=== PATIENT | male | born 1975 | race Hispanic/Latino ===

== ENCOUNTER 2018-03-03 08:17 | Inpatient (IN) | payer MEDICAID, OTHER ==
[2018-03-03 08:30] VITALS: O2SAT 96; BMI 22.2
--- NOTE | 2018-03-03 15:31 | PCM.PSYCH ---
Initial Psychiatric Evaluation - Initial Psychiatric Evaluation Type of Admission: Voluntary Legal Status: Capacity (patient has capacity to sign consent for treatment) Chief Complaint (in patient's own words): "I was in so many hospitals, I had been on all possible psychotropic medications, I was in [facility] for one year, I was on ECT treatment, nothing works, I am anxious 30/12, I was discharged from [facility], I told them I am not ready, but they let me go, I will tell you as well if I am not ready...., I cannot live like that, I am not using drugs, but I know where to buy them, I will snort the heroin and that will be it..." Patient's Reaction to Hospitalization: patient was transferred from [facility] [place] for evaluation and stabilization of depressive symptoms, uncontrolled anxiety, medication management observation and stabilization. Patient was willing to get treatment. History of Present Illness and Precipitating Events: shortly patient is 42-year-old male, self reported history of depression and anxiety, multiple admissions to the psychiatric inpatient unit, including [facility] for one year, recently discharged from [facility] 2 weeks ago, patient currently under [facility] [place], patient has intensive case management as well as nursing staff treatment team, pt denied history of suicidal attempts, one day ago patient tried to cut his forearm (no sutures, very superficial), patient came to [facility] looking for help for his depressive symptoms, anxiety "30/12" inability to function, patient was accepted by nurse practitioner overnight, patient requires further evaluation and stabilization, medication adjustment. patient was seen and examined, discussed with staff, educations confirmed by patient pharmacy, patient was seen at the treatment team meeting room, patient presented to be with acceptable personal hygiene, good ADLs, patient is talkative, process was over inclusive, patient is very dramatic, was using professional terms such as "I was not feeling well, even my ADLs were poor". Patient reported that he was not ready for discharge from [facility] "but they steal discharge me", patient said he did not like the set of the medication what he was discharged on including Seroquel, Klonopin, Trileptal, Tegretol and Prozac, patient reported that he was feeling "overly medicated". As per report from the other hospital patient stopped taking educations including Trileptal Tegretol and Prozac's 3 days ago. Patient reported that "I cannot live this way no more, I want to overdose on Heroin even though that I'm not using any drugs" (this statement is ?, because pt knows a drug dealers and pt was able to describe "ten bags will kill me". pt denied intent or plan to kill self. pt reported that "I feel anxious all the time, I feel panicky 30/12", pt reported that he wakes up with "very uncomfortable feeling", pt asked "why I cannot be a normal person, cook for myself, enjoy my life". pt was c/o that he feels depressed/hopeless and helpless/ pt reported that his anxiety is making him feel this way. off note pt does not present to be anxious or depressed, pt articulates well, expressing himself very well, moreover it is not physically possible to have anxiety 30/12 and sleeps 20 hrs a day. pt c/o weight loss about 20LB for the past two weeks, "I am not exercising". pt denied drinking, smoking about 1/2 pack a day, offered nicotine patch pt is needy/dramatic/has strong borderline personality traits. medical h/o: diabetis, dyslipidemia Social: pt has sister and mother, pt reported h/o working and having his "own place", but was not able to work since 2014. past psych h/o: multiple psych admissions [facility] in August 2017 was d/c, pt said that he staid there for so long because of suicidal ideation with the plan to jump off the bridge. more than 15 of total hospitalizations to the psyc unit. family h/o: mother and sister anxiety and depression, father's father kill self with the gun at age of 50. ppatient mother and patient's sister relatively stable on Zoloft. denied using drugs, but doubtful, pt said he smokes Marijuana last time was three days ago "to help with anxiety". Vital Signs Temp Pulse Resp BP Pulse Ox 03/03/18 08:29 97.9 F 62 17 127/85 96 labs cannabis positive, benzos positive the rest WNL EKG was shown changes will repeat EKG will consider medical consult Current Medications: Active Medications Generic Name Dose Route Start Last Admin Trade Name Freq PRN Reason Stop Dose Admin Alprazolam 1 mg 03/03/18 16:00 Xanax PO BID [facility] Protocol Alprazolam 1 mg 03/03/18 22:00 Xanax PO HS [facility] Protocol Atorvastatin Calcium 20 mg 03/03/18 17:00 Lipitor PO DIN [facility] Cholecalciferol 1,000 intlu 03/04/18 08:00 Vitamin D PO DAILY [facility] Glimepiride 4 mg 03/03/18 12:15 03/03/18 12:47 Amaryl PO 4 mg DAILY LOUISE Administration Metformin HCl 1,000 mg 03/03/18 16:30 Glucophage PO AC LOUISE Ondansetron HCl 4 mg 03/03/18 12:33 03/03/18 12:49 Zofran Odt PO 4 mg BID PRN Administration Nausea/Vomiting Propranolol HCl 20 mg 03/03/18 16:00 Inderal PO BID [facility] Quetiapine Fumarate 100 mg 03/03/18 22:00 Seroquel PO HS [facility] Protocol Sitagliptin Phosphate 100 mg 03/04/18 08:00 Januvia PO DAILY [facility] Past Psychiatric History - Past Psychiatric History Previous Treatment History: Inpatient Prior Professional Help: as per HPI Prior Psychiatric Treatment: as per HPI At [facility]: as per HPI Duration: as per HPI Nature of Treatment: as per HPI Explanation of prior treatment: as per HPI History of Abuse: as per HPI History of ETOH/Drug Use: as per HPI History of Family Illness: as per HPI Pertinent Medical Hx (Current Medical&Sleep Prob, Allergies): Allergies Allergy/AdvReac Type Severity Reaction Status Date / Time No Known Allergies Allergy Verified 03/03/18 08:28 No Known Home Med 03/03/18 Review of Systems - Review of Systems Systems not reviewed;Unavailable: Acuity of Condition - EENT Eyes: As Per HPI Ears: As Per HPI Nose/Mouth/Throat: As Per HPI - Cardiovascular Cardiovascular: As Per HPI - Respiratory Respiratory: As Per HPI - Gastrointestinal Gastrointestinal: As Per HPI - Genitourinary Genitourinary: As Per HPI - Reproductive: Male Reproductive:Male: As Per HPI - Musculoskeletal Musculoskeletal: As Par HPI - Integumentary Integumentary: As Per HPI - Neurological Neurological: As Per HPI - Psychiatric Psychiatric: As Per HPI - Endocrine Endocrine: As Per HPI - Hematologic/Lymphatic Hematologic: As Per HPI Mental Status Examination - Personal Presentation Personal Presentation: Looks stated age - Affect Affect: Constricted (but reactive) - Motor Activity Motor Activity: Calm - Reliability in Providing Information Reliability in Providing Information: Poor, due to altered mood, Other (strong borderline traits) - Speech Speech: Organized - Mood Mood: Depressed ("I am very deperessed, anxious") - Formal Thought Process Formal Thought Process: No Impairment, Other (but thougth process is overinclusive) - Obsessions/Compulsions Obsessions: None Compulsions: None - Cognitive Functions Orientation: Person, Place, Situation, Time Sensorium: Alert Estimate of Intelligence: Average Judgement: Intact, as evidence by: Insight regarding need for hospitalization - Risk Risk: Diminished functioning - Strength & Assets Inventory Strength & Assets Inventory: Cooperative (good physical health) - Limitations Limitations: Living alone DSM 5 DX - DSM 5 DSM 5 Diagnosis: mood disorder NOS r/o mdd r/o severe borderline personality disorder r/o venkata - Recommended/Plan of Treatment Treatment Recommendations and Plan of Treatment: milieu/structure and supportive therapy medication list was confirmed by resident, pharmacy phone number is [phone] Januvia 100 mg daily Propranolol 20 mg daily Atorvastatin 20 mg daily Glimepiride 4 mg daily patient was on carbamazepine 200 mg twice a day, will be on hold Metformin 500 mg daily Vitamin D Prozac 20 mg daily was filled in February 12 Clonazepam 1 mg twice daily Haldol 10 mg at bedtime last filled in January 21 Treatment plan was discussed in details medications for dyslipidemia as well as diabetes resumed Prozac will be discontinued Haldol will be discontinued Zoloft 50 mg will be started for depression and anxiety Seroquel 100 mg at the nighttime for mood stabilization. Clonazepam 1 mg twice daily will be substituted for Xanax 1 mg 3 times a day EKG will be repeated TSH, free T4 Medical consult will be considered SW consultation for discharge plan and social issues Family involvement Follow up on labs Will monitor closely Pt was educated about risk/benefits and alternatives of medications, coping strategies (safety plan, suicide prevention), relapse prevention, importance of follow up with psychiatrist and therapist, stay away from drugs/alcohol/smoking Projected ELOS: 7days Prognosis: fair Discharge Plan and Discharge Criteria: Pt will be not depressed or manic, will be more hopeful, will be not psychotic or anxious, will be not having thoughts of harming self or others, will be tolerating medications well, will not have major side effects, will be able to function, will not pose threat to self or others. - Smoking Cessation Smoking Cessation Initiated: Yes
--- NOTE | 2018-03-03 16:19 | CARD ---
APPROVED REPORT Date of service: 03/03/2018 EKG Measurement Heart [id number] <Conclusion> Sinus Rhythm Atrial trigeminy ASMI, age unknown STTW changes c/w ischemia
--- NOTE | 2018-03-03 16:57 | PCM.BM ---
<Juan David Charlton - Last Filed: 03/03/18 16:54> Treatment Plan Problems - Problems identified on initial assessmt Panic Attacks Date Initiated: 03/03/18 Time Initiated: 10:00 Assessment reference: NA Status: Active Priority: 1 Fear Date Initiated: 03/03/18 Time Initiated: 10:00 Assessment reference: NA Status: Active Priority: 2 Anxiety Date Initiated: 03/03/18 Time Initiated: 10:00 Assessment reference: NA Status: Active Priority: 3 Hopelessness/Helplessness Date Initiated: 03/03/18 Time Initiated: 10:00 Assessment reference: NA Status: Active Priority: 4 Feelings of Worthlessness Date Initiated: 03/03/18 Time Initiated: 10:00 Assessment reference: NA Status: Active Priority: 5 Ineffective Coping Date Initiated: 03/03/18 Time Initiated: 10:00 Assessment reference: NA Status: Active Priority: 6 Altered Sleep Patterns Date Initiated: 03/03/18 Time Initiated: 10:00 Assessment reference: NA Status: Active Priority: 7 Treatment assets and liabiliti Patient Assests: adapts well, cooperative, insightful, self-reliant, ADL independent, negotiates basic needs, cognitively intact, good interpersonal skills Patient Liabilities: live alone, financial problems, medical problems - Milieu Protocol Maintain good personal hygiene: daily Encourage regular showers, every shift Remind patient to perform daily oral care, every shift Assist patient to perform ADL's Maintain personal safety: every shift Educate patient to report safety concerns to staff, every shift Monitor environment for contraband/sharps Medication safety: Monitor for expected outcome, potential side effects: every shift, Assess barriers to learning: every shift, Assess readiness for medication education: every shift Milieu Narrative: milieu/structure and supportive therapy medication list was confirmed by resident, pharmacy phone number is [phone] Januvia 100 mg daily Propranolol 20 mg daily Atorvastatin 20 mg daily Glimepiride 4 mg daily patient was on carbamazepine 200 mg twice a day, will be on hold Metformin 500 mg daily Vitamin D Prozac 20 mg daily was filled in February 12 Clonazepam 1 mg twice daily Haldol 10 mg at bedtime last filled in January 21 Treatment plan was discussed in details medications for dyslipidemia as well as diabetes resumed Prozac will be discontinued Haldol will be discontinued Zoloft 50 mg will be started for depression and anxiety Seroquel 100 mg at the nighttime for mood stabilization. Clonazepam 1 mg twice daily will be substituted for Xanax 1 mg 3 times a day EKG will be repeated TSH, free T4 Medical consult will be considered consultation for discharge plan and social issues Family involvement Follow up on labs Will monitor closely Pt was educated about risk/benefits and alternatives of medications, coping strategies (safety plan, suicide prevention), relapse prevention, importance of follow up with psychiatrist and therapist, stay away from drugs/alcohol/smoking Family Contact Family involvement: Family/SO is involved Family contact: Patient agrees to contact - Goals for Treatment Patient goals for treatment: Feel functional and not waking up feeling like that. Discharge/Continuing Care - Education Needs Education Needs: Patient Medication, Patient Diagnosis/Disease Process, Patient Coping Skills, Patient Anger Management skills, Patient Placement options, Patient Community resources, Patient Activities of Daily Living, Patient Pain, Patient Nutrition, Patient Uses of Medical Equipment, Patient Health Practices/Safety, Patient Personal Hygiene/Grooming, Patient Aftercare Safety Plan - Discharge Discharge Criteria: Tolerates medication w/o severe side effects, Normal sleep pattern - Treatment Team Participation Patient/Family/SO Statement: milieu/structure and supportive therapy medication list was confirmed by resident, pharmacy phone number is [phone] Januvia 100 mg daily Propranolol 20 mg daily Atorvastatin 20 mg daily Glimepiride 4 mg daily patient was on carbamazepine 200 mg twice a day, will be on hold Metformin 500 mg daily Vitamin D Prozac 20 mg daily was filled in February 12 Clonazepam 1 mg twice daily Haldol 10 mg at bedtime last filled in January 21 Treatment plan was discussed in details medications for dyslipidemia as well as diabetes resumed Prozac will be discontinued Haldol will be discontinued Zoloft 50 mg will be started for depression and anxiety Seroquel 100 mg at the nighttime for mood stabilization. Clonazepam 1 mg twice daily will be substituted for Xanax 1 mg 3 times a day EKG will be repeated TSH, free T4 Medical consult will be considered consultation for discharge plan and social issues Family involvement Follow up on labs Will monitor closely Pt was educated about risk/benefits and alternatives of medications, coping strategies (safety plan, suicide prevention), relapse prevention, importance of follow up with psychiatrist and therapist, stay away from drugs/alcohol/smoking <Gisselle Rebolledo Y - Last Filed: 03/04/18 17:02> Family Contact - Outside Agency Mental Health [facility] Care involvment: Following patient during stay, Information-sharing Agency contact name: [facility] contact number: [phone]
[2018-03-03] MEDS ORDERED: Alum-Mag Hydrox-Simethicone Susp (30 mL) PO PRN (17:41)
[2018-03-03] MEDS ORDERED: Magnesium Hydroxide Susp 30 ml UD PO PRN (17:41)
[2018-03-04 08:00] LABS: ALB/GLOB RATIO 1.6 (1.1-1.8); ALBUMIN 3.9 g/dL (3.0-4.8); ALT/SGPT 32 U/L (7-56); AST/SGOT 13 U/L (17-59); BLOOD UREA NITROGEN 11 mg/dL (7-21); CALCIUM 9.4 mg/dL (8.4-10.5); GFR NON-AFRICAN AMERICAN > 60; GLUCOSE,FASTING 133 mg/dL (65-110); HDL CHOLESTEROL 35 mg/dL (29-60)
[2018-03-04] MEDS: Cholecalciferol 1,000 INTLU TAB PO SCH (08:06)
[2018-03-04 08:10] LABS: LDL CHOLESTEROL 77 mg/dL (0-129)
[2018-03-04] MEDS: Insulin Reg-LOW-Coverage SC SCH ×2 (16:27→21:03)
--- NOTE | 2018-03-04 16:57 | PCM.PYCHPN ---
Psychiatric Progress Note - Psychiatric Progress Note Patient seen today, length of contact: 30min Patient Chief Complaint: "I am very depressed, I am staying in the bed, I am very anxious, I feel both the same time". Problems Identified/Issues Discussed: Suicide/ homicide prevention, past psychiatric h/o, current psychiatric symptoms, medical problems, risk/benefits and alternatives of medications, medications compliance, coping strategies, substance abuse h/o, relapse prevention, importance of follow up with psychiatrist and therapist, discharge plan. Medical Problems: pt c/o diarrhea med consult called Diagnostic Results: 03/04/18 07:30 Lab Results 03/04/18 15:51: POC Glucose (mg/dL) 114 H 03/04/18 07:30: TSH 3rd Generation 1.49 03/04/18 07:30: Sodium 141, Potassium 4.2, Chloride 102, Carbon Dioxide 33, Anion Gap 11, BUN 11, Creatinine 1.0, Est GFR ( Amer) > 60, Est GFR (Non- Af Amer) > 60, Random Glucose 133 H, Fasting Glucose 133 H, Calcium 9.4, Total Bilirubin 0.7, AST 13 L, ALT 32, Alkaline Phosphatase 62, Total Protein 6.3, Albumin 3.9, Globulin 2.4, Albumin/Globulin Ratio 1.6, Triglycerides 137, Cholesterol 137, LDL Cholesterol Direct 77, HDL Cholesterol 35 Vital Signs Temp Pulse Pulse Resp BP Pulse Ox 03/04/18 16:00 68 121/84 03/04/18 07:02 97.3 F L 65 20 104/69 03/03/18 16:14 68 119/70 03/03/18 16:00 68 119/70 03/03/18 11:00 65 15 03/03/18 08:30 97.9 F 65 15 120/85 03/03/18 08:29 97.9 F 62 17 127/85 96 DSM 5 Symptoms Update: shortly patient is 42-year-old male, self reported history of depression and anxiety, multiple admissions to the psychiatric inpatient unit, [facility] for one year, recently discharged from [facility] 2 weeks ago, patient [facility] under [facility] [place], patient has intensive case management as well as nursing staff treatment team, pt denied history of suicidal attempts, one day ago patient tried to cut his forearm (no sutures, very superficial), patient came to [facility] looking for help for his depressive symptoms, anxiety "30/12" inability to function, patient was accepted by nurse practitioner overnight, patient requires further evaluation and stabilization, medication adjustment. patient was seen and examined treatment team meeting, patient presented to be sleepy, presented with psychomotor retardation, at the same time patient complained to feel "very anxious". Patient does not have treatment plan, patient was advised to come off with his plans for this admission, patient seems to be not interested. Patient also was advised to write down all of his symptoms because patient has difficulties to express himself, this specification writer has impression likely patient is throwing a lot of symptoms are conflicting. pt could not be sleepy and feeling anxious, pt also cannot be anxious and sleep all day long. "I feel depressed and suicidal". pt was provided with questionnaire borderline personality, pt answered "strongly disagree to all of them", pt has passive aggressive traits. as per staff pt is self isolative, not participating in unit activities. collaterals from [facility] [employer] [facility], see notes for more detailed info. so far patient tolerates medications well, no side effects observed or reported, aims 0, no EPS. Impression: DSM 5 Diagnosis: mood disorder NOS r/o mdd r/o severe borderline personality disorder r/o venkata Medication Change: Yes Medical Record Reviewed: Yes Consults ordered or reviewed: med consult called Mental Status Examination - Cognitive Function Orientation: Person, Place, Situation, Time Memory: Intact Attention: Poor Concentration: Poor Association: WNL Fund of Knowledge: WNL - Mood Mood: Depressed ("I am very deperessed, anxious") - Affect Affect: Constricted (but reactive) - Formal Thought Process Formal Thought Process: No Impairment, Other (but thougth process is overinclusive) - Suicidal Ideation Suicidal Ideation: Yes Plan: ideation, no intent or plan - Homicidal Ideation Homicidal Ideation: No Goal/Treatment Plan - Goal/Treatment Plan Need for Continued Stay: Remain at risks for inpatient hospitalization, Severe depression anxiety, Discharge may exacerbated symptoms, Failed transitioning, Severe functional impairment Progress Toward Problem(s) and Goals/Treatment Plan: milieu/structure and supportive therapy medication list was confirmed by resident, pharmacy phone number is [phone] Januvia 100 mg daily Propranolol 20 mg daily Atorvastatin 20 mg daily Glimepiride 4 mg daily patient was on carbamazepine 200 mg twice a day, will be on hold Metformin 500 mg daily Vitamin D Prozac 20 mg daily was filled in February 12 Clonazepam 1 mg twice daily Haldol 10 mg at bedtime last filled in January 21 Treatment plan was discussed in details medications for dyslipidemia as well as diabetes resumed Prozac will be discontinued Haldol will be discontinued Zoloft 50 mg will be started for depression and anxiety Seroquel 100 mg at the nighttime for mood stabilization. Clonazepam 1 mg twice daily will be substituted for Xanax 1 mg 3 times a day EKG will be repeated TSH, free T4 Medical consult will be considered SW consultation for discharge plan and social issues Family involvement Follow up on labs Will monitor closely Pt was educated about risk/benefits and alternatives of medications, coping strategies (safety plan, suicide prevention), relapse prevention, importance of follow up with psychiatrist and therapist, stay away from drugs/alcohol/smoking Estimated Date of D/C: 03/13/18
--- NOTE | 2018-03-04 17:06 | CP.PCM.PCO ---
Addendum Addendum: 03/04/18 17:04 Patient chart reviewed. VSS stable not suggestive of infection Held metformin and milk of magnesia in the setting of diarrhea Full consult will be done tomorrow in AM.
[2018-03-05] MEDS: Insulin Reg-LOW-Coverage SC SCH ×4 (08:34→21:37)
[2018-03-05 09:09] LABS: BLOOD UREA NITROGEN 13 mg/dL (7-21); CALCIUM 9.4 mg/dL (8.4-10.5); GFR NON-AFRICAN AMERICAN > 60
[2018-03-05] MEDS: Cholecalciferol 1,000 INTLU TAB PO SCH (09:11)
[2018-03-05] MEDS ORDERED: Dextrose 50% SYRINGE Inj (50 ml) IV PRN ×2 (12:14→20:40)
[2018-03-05] MEDS ORDERED: Insulin Reg-MEDIUM-Coverage SC SCH (16:30)
--- NOTE | 2018-03-05 16:44 | PCM.PYCHPN ---
Psychiatric Progress Note - Psychiatric Progress Note Patient seen today, length of contact: 30min Patient Chief Complaint: "I am very depressed, I am staying in the bed, I am very anxious, I feel both the same time". Problems Identified/Issues Discussed: Suicide/ homicide prevention, past psychiatric h/o, current psychiatric symptoms, medical problems, risk/benefits and alternatives of medications, medications compliance, coping strategies, substance abuse h/o, relapse prevention, importance of follow up with psychiatrist and therapist, discharge plan. Medical Problems: pt c/o diarrhea med consult called Diagnostic Results: 03/04/18 07:30 Lab Results 03/04/18 15:51: POC Glucose (mg/dL) 114 H 03/04/18 07:30: TSH 3rd Generation 1.49 03/04/18 07:30: Sodium 141, Potassium 4.2, Chloride 102, Carbon Dioxide 33, Anion Gap 11, BUN 11, Creatinine 1.0, Est GFR ( Amer) > 60, Est GFR (Non- Af Amer) > 60, Random Glucose 133 H, Fasting Glucose 133 H, Calcium 9.4, Total Bilirubin 0.7, AST 13 L, ALT 32, Alkaline Phosphatase 62, Total Protein 6.3, Albumin 3.9, Globulin 2.4, Albumin/Globulin Ratio 1.6, Triglycerides 137, Cholesterol 137, LDL Cholesterol Direct 77, HDL Cholesterol 35 Vital Signs Temp Pulse Pulse Resp BP Pulse Ox 03/04/18 16:00 68 121/84 03/04/18 07:02 97.3 F L 65 20 104/69 03/03/18 16:14 68 119/70 03/03/18 16:00 68 119/70 03/03/18 11:00 65 15 03/03/18 08:30 97.9 F 65 15 120/85 03/03/18 08:29 97.9 F 62 17 127/85 96 DSM 5 Symptoms Update: shortly patient is 42-year-old male, self reported history of depression and anxiety, multiple admissions to the psychiatric inpatient unit, including [facility] for one year, recently discharged from [facility] 2 weeks ago, [facility] [place], patient has intensive case management as well as nursing staff treatment team, pt denied history of suicidal attempts, one day ago patient tried to cut his forearm (no sutures, very superficial), patient came to [facility] looking for help for his depressive symptoms, anxiety "30/12" inability to function, patient was accepted by nurse practitioner overnight, patient requires further evaluation and stabilization, medication adjustment. patient was seen and examined with social work coordinator, hygiene is better, pt took shower and shaved. pt sounded little more optimistic pt wants to stay in the unit for "at least 6weeks for the medication to start working properly". pt's goals for treatment: first take care of my ADLs without being overwhelmed second work on my suicidal thoughts and depression as well as anxiety seem Third try to function on my own again Fourth try not to sleep or stay in bed all day fifth work on getting the right medication sixth work on my sleep pattern Seventh week off without the fear or panic as per staff pt is self isolative, not participating in unit activities. collaterals from [employer], see SW notes for more detailed info. so far patient tolerates medications well, no side effects observed or reported, aims 0, no EPS. Impression: DSM 5 Diagnosis: mood disorder NOS r/o mdd r/o severe borderline personality disorder r/o gad9 work on getting on the right medications 6 was all my sleep pattern 7 wake up without the fear and panic Medication Change: Yes Medical Record Reviewed: Yes Mental Status Examination - Cognitive Function Orientation: Person, Place, Situation, Time Memory: Intact Attention: Poor Concentration: Poor Association: WNL Fund of Knowledge: WNL - Mood Mood: Depressed ("I am very deperessed, anxious") - Affect Affect: Constricted (but reactive) - Formal Thought Process Formal Thought Process: No Impairment, Other (but thougth process is overinclusive) - Suicidal Ideation Suicidal Ideation: Yes - Homicidal Ideation Homicidal Ideation: No Goal/Treatment Plan - Goal/Treatment Plan Need for Continued Stay: Remain at risks for inpatient hospitalization, Severe depression anxiety, Discharge may exacerbated symptoms, Failed transitioning, Severe functional impairment Progress Toward Problem(s) and Goals/Treatment Plan: milieu/structure and supportive therapy Treatment plan was discussed in details medications for dyslipidemia as well as diabetes resumed Zoloft 50 mg for depression and anxiety Seroquel 100 mg at the nighttime for mood stabilization. Xanax 1 mg 3 times a day for anxiety EKG was repeated showed Atrial trigeminy, ASMI, age unknonw, STTW changes TSH, free T4 Medical consult will be considered SW consultation for discharge plan and social issues Family involvement Follow up on labs Will monitor closely Pt was educated about risk/benefits and alternatives of medications, coping strategies (safety plan, suicide prevention), relapse prevention, importance of follow up with psychiatrist and therapist, stay away from drugs/alcohol/smokingprescriptions Estimated Date of D/C: 03/13/18
--- NOTE | 2018-03-05 18:07 | CP.PCM.CON ---
<Brea Mora - Last Filed: 03/05/18 18:17> History of Present Illness - History of Present Illness History of Present Illness: PGY-1 Brea Mora Consult Note for Dr. Baird's service Patient is a 42 year old male with a past medical history of insulin dependent diabetes, dyslipidemia, depression, and anxiety admitted for suicidal ideation and depression. Patient has an extensive psychiatric history with several hospital admissions for depression, anxiety, and suicidal ideation. He was last admitted to [facility] psychiatric unit in December 2017 and was discharged 2 weeks prior to arrival. He presented to the ED on 03/03/2018 for suicidal ideation after self-inflicted arm laceration and was admitted to the psychiatric unit. Patient had suicidal plan to overdose on heroin, but history of heroin use. He notes experiencing persistent episodes of intense fear with associated palpitations and hyperactivity which he believes is secondary to anxiety. He notes that he has been sleeping for 4 hours a night, but that he lays in bed awake for about 20 hours due to feeling tired. In addition, patient also states that he has had persistent nausea with associated decreased PO and intermittent episodes of diarrhea since his discharge from [facility]. He has lost about 20 pounds, but forces himself to eat (about 400 calories a day) because of his diabetes. He has not noticed that nausea is associated with any foods or medications. Patient does state that he smoked marijuana three days ago to help with nausea, but experienced limited relief. He was given Zofran upon his admission, which helped alleviate symptoms. He notes that episodes of non-bloody diarrhea would present after meals with which he took Metformin. Internal medicine was consulted after patient had 4-5 episodes of orange colored diarrhea. Metformin and Milk of magnesium were stopped after evaluation, and symptoms resolved. He denies fever, chills, vomiting, hematemesis, and dysuria. Patient notes chronic intermittent 2/10 waxing and waning left lower abdominal pain, occasional right lower abdominal pain, but does not feel it is associated with nausea or diarrhea. Patient denies chest pain, sob, headaches, weakness, numbness or tingling, SI, vomiting. PMH- diabetes, dyslipidemia Psych Hx- multiple psych admissions; [facility] in August 2017 was d/c, pt said that he staid there for so long because of suicidal ideation with the plan to jump off the bridge ;more than 15 of total hospitalizations to the psyc unit. FH- mother and sister anxiety and depression, father's father kill self with the gun at age of 49. ppatient mother and patient's sister relatively stable on Zoloft Meds- Metformin 1000 Social: pt has sister and mother, pt reported h/o working and having his "own place", but was not able to work since 2015. . Review of Systems - Review of Systems Review of Systems: 12 point ROS noted as mentioned in HPI Past Patient History - Past Social History Smoking Status: Heavy Smoker > 10 Cigarettes Daily - CARDIAC Hx Cardiac Disorders: Yes Hx Hypercholesterolemia: Yes - PULMONARY Hx Respiratory Disorders: No - NEUROLOGICAL Hx Neurological Disorder: No - HEENT Hx HEENT Problems: No - RENAL Hx Chronic Kidney Disease: No - ENDOCRINE/METABOLIC Hx Endocrine Disorders: Yes Hx Diabetes Mellitus Type 2: Yes - HEMATOLOGICAL/ONCOLOGICAL Hx Blood Disorders: No - INTEGUMENTARY Hx Dermatological Problems: No - MUSCULOSKELETAL/RHEUMATOLOGICAL Hx Musculoskeletal Disorders: No - GASTROINTESTINAL Hx Gastrointestinal Disorders: No - GENITOURINARY/GYNECOLOGICAL Hx Genitourinary Disorders: No - PSYCHIATRIC Hx Anxiety: Yes Hx Bipolar Disorder: Yes Hx Depression: Yes Hx Substance Use: No - SURGICAL HISTORY Hx Surgeries: No Meds Allergies/Adverse Reactions: Allergies Allergy/AdvReac Type Severity Reaction Status Date / Time No Known Allergies Allergy Verified 03/03/18 16:08 - Medications Medications: Current Medications Acetaminophen (Tylenol 325mg Tab) 650 mg PO Q6H PRN PRN Reason: Pain, moderate (4-7) Al Hydrox/Mg Hydrox/Simethicone (Maalox Plus 30 Ml) 30 ml PO DAILY PRN PRN Reason: Indigestion / Heartburn Last Admin: 03/04/18 11:01 Dose: 30 ml Alprazolam (Xanax) 1 mg PO BID LOUISE; Protocol Last Admin: 03/05/18 16:06 Dose: 1 mg Alprazolam (Xanax) 1 mg PO HS LOUISE; Protocol Last Admin: 03/04/18 21:02 Dose: 1 mg Atorvastatin Calcium (Lipitor) 20 mg PO DIN LOUISE Last Admin: 03/05/18 16:07 Dose: 20 mg Cholecalciferol (Vitamin D) 1,000 intlu PO DAILY LOUISE Last Admin: 03/05/18 09:11 Dose: 1,000 intlu Dextrose (Dextrose 50% Inj) 0 ml IV STAT PRN; Protocol PRN Reason: Hypoglycemia Protocol Glimepiride (Amaryl) 4 mg PO DAILY [facility] Last Admin: 03/05/18 09:09 Dose: 4 mg Dextrose (Dextrose 5% In Water 1000 Ml) 1,000 mls @ 0 mls/hr IV .Q0M PRN; Protocol PRN Reason: Hypoglycemia Protocol Insulin Human Regular (Humulin R Low) 0 units SC [facility]; Protocol Last Admin: 03/05/18 17:27 Dose: 1 unit Magnesium Hydroxide (Milk Of Magnesia) 30 ml PO DAILY PRN PRN Reason: Constipation Metformin HCl (Glucophage) 1,000 mg PO AC [facility] Last Admin: 03/04/18 11:44 Dose: 1,000 mg Nicotine (Nicoderm Cq) 1 patch TD DAILY [facility] Last Admin: 03/05/18 09:09 Dose: 1 patch Ondansetron HCl (Zofran Odt) 4 mg PO BID PRN PRN Reason: Nausea/Vomiting Last Admin: 03/03/18 12:49 Dose: 4 mg Propranolol HCl (Inderal) 20 mg PO BID [facility] Last Admin: 03/05/18 16:07 Dose: 20 mg Quetiapine Fumarate (Seroquel) 100 mg PO HS [facility]; Protocol Last Admin: 03/04/18 21:02 Dose: 100 mg Sertraline HCl (Zoloft) 50 mg PO DAILY [facility] Last Admin: 03/05/18 09:11 Dose: 50 mg Sitagliptin Phosphate (Januvia) 100 mg PO DAILY [facility] Last Admin: 03/05/18 09:11 Dose: 100 mg Ziprasidone (Geodon Inj) 20 mg IM Q6H PRN; Protocol PRN Reason: severe agitaiton/psychosis Ziprasidone (Geodon Cap) 20 mg PO Q6H PRN; Protocol PRN Reason: psychosis/agitation Physical Exam - Constitutional Appears: Non-toxic, No Acute Distress - Head Exam Head Exam: NORMAL INSPECTION, NORMOCEPHALIC - Eye Exam Eye Exam: EOMI, Normal appearance. absent: Nystagmus, Scleral icterus - ENT Exam ENT Exam: Mucous Membranes Moist - Respiratory Exam Respiratory Exam: Clear to Auscultation Bilateral, NORMAL BREATHING PATTERN. absent: Rales, Rhonchi, Wheezes - Cardiovascular Exam Cardiovascular Exam: REGULAR RHYTHM, +S1, +S2 - GI/Abdominal Exam GI & Abdominal Exam: Normal Bowel Sounds, Soft - Extremities Exam Extremities exam: Positive for: normal inspection. Negative for: calf tenderness, pedal edema - Neurological Exam Neurological exam: Alert, Oriented x3 - Psychiatric Exam Psychiatric exam: Normal Affect, Normal Mood - Skin Skin Exam: Intact, Normal Color Results - Vital Signs Recent Vital Signs: Last Vital Signs Temp 97.6 F 03/05/18 06:47 Pulse 70 03/05/18 16:07 Resp 18 03/05/18 06:47 BP 108/71 03/05/18 16:07 Pulse Ox 96 03/03/18 08:29 - Labs Result Diagrams: 03/05/18 07:43 Labs: Laboratory Results - last 24 hr 03/04/18 03/05/18 03/05/18 21:03 07:16 07:30 Sodium Potassium Chloride Carbon Dioxide Anion Gap BUN Creatinine Est GFR ( Amer) Est GFR (Non-Af Amer) POC Glucose (mg/dL) 209 H 122 H Random Glucose Hemoglobin A1c 6.8 H Calcium 03/05/18 03/05/18 07:43 11:01 Sodium 141 Potassium 4.3 Chloride 101 Carbon Dioxide 31 Anion Gap 13 BUN 13 Creatinine 0.9 Est GFR ( Amer) > 60 Est GFR (Non-Af Amer) > 60 POC Glucose (mg/dL) 145 H Random Glucose 119 H Hemoglobin A1c Calcium 9.4 Assessment & Plan - Assessment and Plan (Free Text) Assessment: Patient is a 42 yo male with extensive psych history, diabetes, dyslipidemia presents to hospital for suicidal ideations and depression. Medicine was consulted for ongoing episodes of diarrhea which are currently resolved with medication management Plan: Diarrhea Held milk of magnesia Held metformin Held Januvia Patient reports no episodes today Continue to monitor DM ACHS ISS- low dose Glimperide 4mg po daily Abnormal EKG Cardio Consult- Dr. Razo- recommendations appreciated Repeat EKG in AM 03/03/18 EKG -atrial trigeminiy; ASMI; STTW changes c/w ischemia; changed from prio Hypotension Consider holding propanolol in the setting of low blood pressures if not continued episodes Medical Management discussed with Dr. Baird <Nils Baird - Last Filed: 03/06/18 06:20> Meds - Medications Medications: Current Medications Acetaminophen (Tylenol 325mg Tab) 650 mg PO Q6H PRN PRN Reason: Pain, moderate (4-7) Al Hydrox/Mg Hydrox/Simethicone (Maalox Plus 30 Ml) 30 ml PO DAILY PRN PRN Reason: Indigestion / Heartburn Last Admin: 03/04/18 11:01 Dose: 30 ml Alprazolam (Xanax) 1 mg PO BID [facility]; Protocol Last Admin: 03/05/18 16:06 Dose: 1 mg Alprazolam (Xanax) 1 mg PO HS [facility]; Protocol Last Admin: 03/05/18 21:08 Dose: 1 mg Atorvastatin Calcium (Lipitor) 20 mg PO DIN [facility] Last Admin: 03/05/18 16:07 Dose: 20 mg Cholecalciferol (Vitamin D) 1,000 intlu PO DAILY [facility] Last Admin: 03/05/18 09:11 Dose: 1,000 intlu Dextrose (Dextrose 50% Inj) 0 ml IV STAT PRN; Protocol PRN Reason: Hypoglycemia Protocol Glimepiride (Amaryl) 4 mg PO DAILY [facility] Last Admin: 03/05/18 09:09 Dose: 4 mg Dextrose (Dextrose 5% In Water 1000 Ml) 1,000 mls @ 0 mls/hr IV .Q0M PRN; Protocol PRN Reason: Hypoglycemia Protocol Insulin Detemir (Levemir) 14 unit SC [facility] Last Admin: 03/05/18 21:38 Dose: 14 unit Insulin Human Regular (Humulin R Low) 0 units SC [facility]; Protocol Last Admin: 03/05/18 21:37 Dose: Not Given Magnesium Hydroxide (Milk Of Magnesia) 30 ml PO DAILY PRN PRN Reason: Constipation Metformin HCl (Glucophage) 1,000 mg PO AC [facility] Last Admin: 03/04/18 11:44 Dose: 1,000 mg Nicotine (Nicoderm Cq) 1 patch TD DAILY [facility] Last Admin: 03/05/18 09:09 Dose: 1 patch Ondansetron HCl (Zofran Odt) 4 mg PO BID PRN PRN Reason: Nausea/Vomiting Last Admin: 03/03/18 12:49 Dose: 4 mg Propranolol HCl (Inderal) 20 mg PO BID [facility] Last Admin: 03/05/18 16:07 Dose: 20 mg Quetiapine Fumarate (Seroquel) 100 mg PO [facility]; Protocol Last Admin: 03/05/18 21:08 Dose: 100 mg Sertraline HCl (Zoloft) 50 mg PO DAILY [facility] Last Admin: 03/05/18 09:11 Dose: 50 mg Sitagliptin Phosphate (Januvia) 100 mg PO DAILY [facility] Last Admin: 03/05/18 09:11 Dose: 100 mg Ziprasidone (Geodon Inj) 20 mg IM Q6H PRN; Protocol PRN Reason: severe agitaiton/psychosis Ziprasidone (Geodon Cap) 20 mg PO Q6H PRN; Protocol PRN Reason: psychosis/agitation Results - Vital Signs Recent Vital Signs: Last Vital Signs Temp 97.6 F 03/05/18 06:47 Pulse 70 03/05/18 16:07 Resp 18 03/05/18 06:47 BP 108/71 03/05/18 16:07 Pulse Ox 96 03/03/18 08:29 - Labs Result Diagrams: 03/05/18 07:43 Labs: Laboratory Results - last 24 hr 03/05/18 03/05/18 03/05/18 07:16 07:30 07:43 Sodium 141 Potassium 4.3 Chloride 101 Carbon Dioxide 31 Anion Gap 13 BUN 13 Creatinine 0.9 Est GFR ( Amer) > 60 Est GFR (Non-Af Amer) > 60 POC Glucose (mg/dL) 122 H Random Glucose 119 H Hemoglobin A1c 6.8 H Calcium 9.4 Troponin I 03/05/18 03/05/18 03/05/18 11:01 16:23 20:00 Sodium Potassium Chloride Carbon Dioxide Anion Gap BUN Creatinine Est GFR ( Amer) Est GFR (Non-Af Amer) POC Glucose (mg/dL) 145 H 184 H Random Glucose Hemoglobin A1c Calcium Troponin I < 0.01 03/05/18 20:17 Sodium Potassium Chloride Carbon Dioxide Anion Gap BUN Creatinine Est GFR ( Amer) Est GFR (Non-Af Amer) POC Glucose (mg/dL) 246 H Random Glucose Hemoglobin A1c Calcium Troponin I Attending/Attestation - Attestation I have personally seen and examined this patient.: Yes I have fully participated in the care of the patient.: Yes I have reviewed all pertinent clinical information: Yes Notes (Text): 03/05/18 42 year old male with past medical history of diabetes and anxiety current admitted under psychiatric unit for depression, SI and anxiety. Medical consultation was requested for medical management and diarrhea (now re solved). Review of medications shows he was receiving high dose of metformin which we can hold for now. A1c is 6.8. Continue with insulin ss. He is on glimepiride. Patient also complained of intermittent palpitation at times. He is on propranolol. EKG shows atrial trigeminy. TSH is normal. Will request for cardiology evaluation. Thank you Dr. Arboleda for allowing us to participate in the care of this patient. We will continue to follow. Nils Baird MD Hospitalist.
[2018-03-05] MEDS ORDERED: Insulin Detemir 100 units/ml Vial (Levemir) SC SCH (22:00)
--- NOTE | 2018-03-06 07:48 | RAD ---
Date of service: 03/05/2018 HISTORY: DILATED AORTA COMPARISON: No prior. FINDINGS: LUNGS: No active pulmonary disease. PLEURA: No significant pleural effusion identified, no pneumothorax apparent. CARDIOVASCULAR: Normal cardiomediastinal silhouette including the aortic knob. CT will define the aorta more accurately if clinically warranted. OSSEOUS STRUCTURES: No significant abnormalities. VISUALIZED UPPER ABDOMEN: Normal. OTHER FINDINGS: None. IMPRESSION: No acute cardiopulmonary disease appreciated. CT can be performed if clinical concern remains for aortic pathology, which is a more sensitive radiological examination.
[2018-03-06] MEDS: Cholecalciferol 1,000 INTLU TAB PO SCH (08:38)
[2018-03-06] MEDS: Insulin Reg-LOW-Coverage SC SCH ×4 (08:39→21:55)
[2018-03-06 11:53] LABS: HEMOGLOBIN 15.6 g/dL (14.0-18.0); MEAN CELL VOLUME 82.8 fl (80.0-105.0); MEAN CORPUSCULAR HEMOGLOBIN 29.2 pg (25.0-35.0); MEAN CORPUSCULAR HGB CONC 35.3 g/dl (31.0-37.0); MEAN PLATELET VOLUME 9.9 fl (7.0-11.0); RBC 5.34 10^6/uL (3.5-6.1); WHITE BLOOD COUNT 6.6 10^3/ul (4.5-11.0)
--- NOTE | 2018-03-06 16:03 | CON ---
DATE: 03/06/2018 CARDIOLOGY CONSULT REASON FOR CONSULTATION: Abnormal EKG. HISTORY OF PRESENT ILLNESS: The patient is a 42-year-old male, who has no known prior cardiac history. He has a history of depression, who was admitted because of anxiety. The patient reported that he feels that his adrenaline is high and at time palpitation. He denies any dizziness or retrosternal chest pain and is unaware of any prior cardiac history. SOCIAL HISTORY: The patient is ex-smoker. MEDICATIONS: Amaryl 4 mg daily, Geodon tablets 20 mg p.o. every 6 hours p.r.n., metformin 1 g daily, Inderal 20 mg twice a day, Levemir 4 units subcutaneous at bedtime, Januvia 100 mg daily, Seroquel 100 mg p.o. at bedtime, Nicoderm patch, Xanax 1 mg p.o. twice a day, Zoloft 50 mg once a day. REVIEW OF SYSTEMS: The patient did report tendency to hurt himself and he states he tried to cut his wrist 2 days ago at home. PHYSICAL EXAMINATION: GENERAL: The patient is a middle-aged male, who does not appear to be in any acute distress. VITAL SIGNS: Blood pressure 112/62, heart rate 70, temperature 97.7, respirations 20. HEENT: Normocephalic. NECK: No JVD. CHEST: Clear. HEART: S1 and S2 regular. ABDOMEN: Soft. EXTREMITIES: No edema. LABORATORY DATA: SMA-7 is within normal limits except for glucose of 119. One set of troponin is negative. RPR is nonreactive. EKG revealed sinus bradycardia, rate of 56, atrial trigeminy and poor R-wave progression. Yesterday's EKG was read as sinus rhythm with atrial trigeminy. ST-T wave changes consistent with ischemia; however, in my opinion they were nonspecific. ASSESSMENT: 1. Atrial trigeminy. 2. Nonspecific lateral T-wave changes. 3. Anxiety disorder. RECOMMENDATIONS: Continue current Amaryl and metformin. Continue Lipitor 20 mg once a day. Continue Inderal 20 mg twice a day. Obtain an echocardiogram, CBC, TSH level and one more set of troponin. Juanjo Hannallah, MD [facility] # [id number]
--- NOTE | 2018-03-06 17:30 | PCM.PYCHPN ---
Psychiatric Progress Note - Psychiatric Progress Note Patient seen today, length of contact: 30min Patient Chief Complaint: "I am very depressed, my heart is beating really fast, I do want to go to an echocardiogram, I want to sleep first" Problems Identified/Issues Discussed: Suicide/ homicide prevention, past psychiatric h/o, current psychiatric symptoms, medical problems, risk/benefits and alternatives of medications, medications compliance, coping strategies, substance abuse h/o, relapse prevention, importance of follow up with psychiatrist and therapist, discharge plan. Medical Problems: pt c/o diarrhea med consult called Diagnostic Results: 03/04/18 07:30 Lab Results 03/04/18 15:51: POC Glucose (mg/dL) 114 H 03/04/18 07:30: TSH 3rd Generation 1.49 03/04/18 07:30: Sodium 141, Potassium 4.2, Chloride 102, Carbon Dioxide 33, Anion Gap 11, BUN 11, Creatinine 1.0, Est GFR ( Amer) > 60, Est GFR (Non- Af Amer) > 60, Random Glucose 133 H, Fasting Glucose 133 H, Calcium 9.4, Total Bilirubin 0.7, AST 13 L, ALT 32, Alkaline Phosphatase 62, Total Protein 6.3, Albumin 3.9, Globulin 2.4, Albumin/Globulin Ratio 1.6, Triglycerides 137, Cholesterol 137, LDL Cholesterol Direct 77, HDL Cholesterol 35 Vital Signs Temp Pulse Pulse Resp BP Pulse Ox 03/04/18 16:00 68 121/84 03/04/18 07:02 97.3 F L 65 20 104/69 03/03/18 16:14 68 119/70 03/03/18 16:00 68 119/70 03/03/18 11:00 65 15 03/03/18 08:30 97.9 F 65 15 120/85 03/03/18 08:29 97.9 F 62 17 127/85 96 03/06/18 03/06/18 03/06/18 11:45 11:45 11:45 WBC RBC Hgb Hct MCV MCH MCHC RDW Plt Count MPV D-Dimer, Quantitative < 200 Sodium Potassium Chloride Carbon Dioxide Anion Gap BUN Creatinine Est GFR ( Amer) Est GFR (Non-Af Amer) POC Glucose (mg/dL) Random Glucose Fasting Glucose Hemoglobin A1c Calcium Total Bilirubin AST ALT Alkaline Phosphatase Troponin I < 0.01 Total Protein Albumin Globulin Albumin/Globulin Ratio Triglycerides Cholesterol LDL Cholesterol Direct HDL Cholesterol TSH 3rd Generation 1.03 RPR 03/06/18 03/06/18 03/06/18 11:45 11:29 07:40 WBC 6.6 RBC 5.34 Hgb 15.6 Hct 44.2 MCV 82.8 MCH 29.2 MCHC 35.3 RDW 13.0 Plt Count 142 MPV 9.9 D-Dimer, Quantitative Sodium Potassium Chloride Carbon Dioxide Anion Gap BUN Creatinine Est GFR ( Amer) Est GFR (Non-Af Amer) POC Glucose (mg/dL) 174 H 76 Random Glucose Fasting Glucose Hemoglobin A1c Calcium Total Bilirubin AST ALT Alkaline Phosphatase Troponin I Total Protein Albumin Globulin Albumin/Globulin Ratio Triglycerides Cholesterol LDL Cholesterol Direct HDL Cholesterol TSH 3rd Generation RPR 03/05/18 03/05/18 03/05/18 20:17 20:00 16:23 WBC RBC Hgb Hct MCV MCH MCHC RDW Plt Count MPV D-Dimer, Quantitative Sodium Potassium Chloride Carbon Dioxide Anion Gap BUN Creatinine Est GFR ( Amer) Est GFR (Non-Af Amer) POC Glucose (mg/dL) 246 H 184 H Random Glucose Fasting Glucose Hemoglobin A1c Calcium Total Bilirubin AST ALT Alkaline Phosphatase Troponin I < 0.01 Total Protein Albumin Globulin Albumin/Globulin Ratio Triglycerides Cholesterol LDL Cholesterol Direct HDL Cholesterol TSH 3rd Generation RPR 03/05/18 03/05/18 03/05/18 11:01 07:43 07:30 WBC RBC Hgb Hct MCV MCH MCHC RDW Plt Count MPV D-Dimer, Quantitative Sodium 141 Potassium 4.3 Chloride 101 Carbon Dioxide 31 Anion Gap 13 BUN 13 Creatinine 0.9 Est GFR ( Amer) > 60 Est GFR (Non-Af Amer) > 60 POC Glucose (mg/dL) 145 H Random Glucose 119 H Fasting Glucose Hemoglobin A1c 6.8 H Calcium 9.4 Total Bilirubin AST ALT Alkaline Phosphatase Troponin I Total Protein Albumin Globulin Albumin/Globulin Ratio Triglycerides Cholesterol LDL Cholesterol Direct HDL Cholesterol TSH 3rd Generation RPR 03/05/18 03/04/18 03/04/18 07:16 21:03 15:51 WBC RBC Hgb Hct MCV MCH MCHC RDW Plt Count MPV D-Dimer, Quantitative Sodium Potassium Chloride Carbon Dioxide Anion Gap BUN Creatinine Est GFR ( Amer) Est GFR (Non-Af Amer) POC Glucose (mg/dL) 122 H 209 H 114 H Random Glucose Fasting Glucose Hemoglobin A1c Calcium Total Bilirubin AST ALT Alkaline Phosphatase Troponin I Total Protein Albumin Globulin Albumin/Globulin Ratio Triglycerides Cholesterol LDL Cholesterol Direct HDL Cholesterol TSH 3rd Generation RPR 03/04/18 03/04/18 03/04/18 07:30 07:30 07:30 WBC RBC Hgb Hct MCV MCH MCHC RDW Plt Count MPV D-Dimer, Quantitative Sodium 141 Potassium 4.2 Chloride 102 Carbon Dioxide 33 Anion Gap 11 BUN 11 Creatinine 1.0 Est GFR ( Amer) > 60 Est GFR (Non-Af Amer) > 60 POC Glucose (mg/dL) Random Glucose 133 H Fasting Glucose 133 H Hemoglobin A1c Calcium 9.4 Total Bilirubin 0.7 AST 13 L ALT 32 Alkaline Phosphatase 62 Troponin I Total Protein 6.3 Albumin 3.9 Globulin 2.4 Albumin/Globulin Ratio 1.6 Triglycerides 137 Cholesterol 137 LDL Cholesterol Direct 77 HDL Cholesterol 35 TSH 3rd Generation 1.49 RPR Nonreactive Temp Pulse Resp BP Pulse Ox 97.7 F 83 20 123/85 96 03/06/18 07:00 03/06/18 15:55 03/06/18 07:00 03/06/18 15:55 03/03/18 08:29 DSM 5 Symptoms Update: shortly patient is 42-year-old male, self reported history of depression and anxiety, multiple admissions to the psychiatric inpatient unit, including [facility] for one year, recently discharged from [facility] (formerly [facility]) 2 weeks ago, [facility] [place], patient has intensive case management as well as nursing staff treatment team, pt denied history of suicidal attempts, one day ago patient tried to cut his forearm (no sutures, very superficial), patient came to [facility] looking for help for his depressive symptoms, anxiety "30/12" inability to function, patient was accepted by nurse practitioner overnight, patient requires further evaluation and stabilization, medication adjustment. patient was seen and examined with with med students and resident in his room. pt is dramatic, was c/o hot sweats, pt does not present in any distress, pt said that "I think it is because of zoloft", when this writer technical publications offered to d/c zoloft pt asked "then what is about my depression, I need to be on medication". then pt was complaining that his heart is beating very fast, this writer technical publications educated pt that he was seen by utility worker forge and suggested to have Echocardiogram, but patient refused earlier saying "I did not sleep last night, I want to sleep first", it is very irrational, pt is passive aggressive. pt is staying in his bed all day long, not participating in unit activities, complaining of "anxiety", but able to eat 100% of his meals with no exacerbation of his symptoms. collaterals from [employer] [facility], see notes for more detailed info. so far patient tolerates medications well, aims 0, no EPS. Impression: DSM 5 Diagnosis: mood disorder NOS r/o mdd r/o severe borderline personality disorder r/o venkata Medication Change: Yes (Zoloft discontinued) Medical Record Reviewed: Yes Mental Status Examination - Cognitive Function Orientation: Person, Place, Situation, Time Memory: Intact Attention: Poor Concentration: Poor Association: WNL Fund of Knowledge: WNL - Mood Mood: Depressed ("I am very deperessed, anxious") - Affect Affect: Constricted (but reactive) - Formal Thought Process Formal Thought Process: No Impairment, Other (but thougth process is overinclusive) - Suicidal Ideation Suicidal Ideation: Yes - Homicidal Ideation Homicidal Ideation: No Goal/Treatment Plan - Goal/Treatment Plan Need for Continued Stay: Remain at risks for inpatient hospitalization, Severe depression anxiety, Discharge may exacerbated symptoms, Failed transitioning, Severe functional impairment Progress Toward Problem(s) and Goals/Treatment Plan: milieu/structure and supportive therapy Treatment plan was discussed in details medications for dyslipidemia as well as diabetes resumed Zoloft on hold Seroquel 100 mg at the nighttime for mood stabilization. Xanax 1 mg 3 times a day for anxiety vistaril EKG was repeated showed Atrial trigeminy, ASMI, age unknonw, STTW changes, Cardi ology consult appreciated will f/u on Echocardiogram TSH, free T4 Medical consult will be considered consultation for discharge plan and social issues Family involvement Follow up on labs Will monitor closely Pt was educated about risk/benefits and alternatives of medications, coping st rategies (safety plan, suicide prevention), relapse prevention, importance of follow up with psychiatrist and therapist, stay away from drugs/alcohol/smokingprescriptions Estimated Date of D/C: 03/13/18
--- NOTE | 2018-03-06 19:25 | CARD ---
APPROVED REPORT Date of service: 03/06/2018 EXAM: Two-dimensional and M-mode echocardiogram with Doppler and color Doppler. INDICATION Abnormal EKG/Arrhythmia 2D DIMENSIONS RVDd2.9 (2.9-3.5cm)Left Atrium (2D)3.8 (1.6-4.0cm) IVSd0.8 (0.7-1.1cm)LVDd4.9 (3.9-5.9cm) PWd1.0 (0.7-1.1cm)LVDs3.4 (2.5-4.0cm) FS (%) 31.0 %LVEF (%)58.5 (>50%) M-Mode DIMENSIONS Aortic Root3.80 (2.2-3.7cm)Aortic Cusp Exc.2.00 (1.5-2.0cm) Aortic Valve AoV Peak Ctewxtee500.0cm/Dorita Peak GR.10mmHg Mitral Valve MV E Gcwajmam07.7cm/sMV A Rzwwtvdx02.9cm/sE/A ratio1.1 TDI E/Lateral E'0.0E/Medial E'0.0 Pulmonary Valve PV Peak Lnhksrhw04.4cm/sPV Peak Grad.3mmHg Tricuspid Valve TR Peak Iidqzaby220zd/sRAP [id number] Peak Gr.27mmHg RLOP84msFw LEFT VENTRICLE The left ventricle is normal size. There is normal left ventricular wall thickness. The left ventricular function is normal. The left ventricular ejection fraction is within the normal range. There is normal LV segmental wall motion. The left ventricular diastolic function is normal. RIGHT VENTRICLE The right ventricle is normal size. There is normal right ventricular wall thickness. The right ventricular systolic function is normal. ATRIA The left atrium size is normal. The right atrium size is normal. AORTIC VALVE The aortic valve is bicuspid. No aortic regurgitation is present. There is no aortic valvular stenosis. MITRAL VALVE The mitral valve is normal in structure. Mitral regurgitation is mild. TRICUSPID VALVE The tricuspid valve is normal in structure. There is mild tricuspid regurgitation. There is mild pulmonary hypertension. PULMONIC VALVE The pulmonary valve is normal in structure. There is no pulmonic valvular regurgitation. GREAT VESSELS The aortic root is mildly enlarged. <Conclusion> The left ventricle is normal size. There is normal left ventricular wall thickness. The left ventricular function is normal. The left ventricular ejection fraction is within the normal range. There is normal LV segmental wall motion. The left ventricular diastolic function is normal. The aortic valve is bicuspid.The aortic root is mildly enlarged. Mitral regurgitation is mild. There is mild tricuspid regurgitation. There is mild pulmonary hypertension.
[2018-03-06] MEDS: Insulin Detemir 100 units/ml Vial (Levemir) SC SCH (21:16)
--- NOTE | 2018-03-06 21:23 | CP.PCM.PN ---
<Brea Mora - Last Filed: 03/06/18 21:24> Subjective - Date & Time of Evaluation Date of Evaluation: 03/06/18 Time of Evaluation: 10:15 - Subjective Subjective: PGY-1 Brea Mora Consult Note for Dr. Baird's service Patient is a 42 yo male with extensive psych history, diabetes, dyslipidemia p resents to hospital for suicidal ideations and depression. He was evaluated at bedside. Denies episodes of diarrhea or abdominal pain. Patient notes that glucose was around 200 prior to bed one night ago, but that it decreased after being given Levemir. Denies chills, diaphoresis, dizziness. He describes feeling like his mind is racing with associated difficulty sleeping, but believes it is likely due to antidepressants. He denies all other complaints. Objective - Vital Signs/Intake and Output Vital Signs (last 24 hours): Temp Pulse Resp BP Pulse Ox 97.7 F 83 20 123/85 96 03/06/18 07:00 03/06/18 17:40 03/06/18 07:00 03/06/18 17:40 03/03/18 08:29 - Medications Medications: Current Medications Acetaminophen (Tylenol 325mg Tab) 650 mg PO Q6H PRN PRN Reason: Pain, moderate (4-7) Al Hydrox/Mg Hydrox/Simethicone (Maalox Plus 30 Ml) 30 ml PO DAILY PRN PRN Reason: Indigestion / Heartburn Last Admin: 03/04/18 11:01 Dose: 30 ml Alprazolam (Xanax) 1 mg PO BID [facility]; Protocol Last Admin: 03/06/18 17:40 Dose: 1 mg Alprazolam (Xanax) 1 mg PO HS [facility]; Protocol Last Admin: 03/06/18 21:16 Dose: 1 mg Atorvastatin Calcium (Lipitor) 20 mg PO DIN [facility] Last Admin: 03/06/18 17:40 Dose: 20 mg Cholecalciferol (Vitamin D) 1,000 intlu PO DAILY [facility] Last Admin: 03/06/18 08:38 Dose: 1,000 intlu Dextrose (Dextrose 50% Inj) 0 ml IV STAT PRN; Protocol PRN Reason: Hypoglycemia Protocol Glimepiride (Amaryl) 4 mg PO DAILY [facility] Last Admin: 03/06/18 08:38 Dose: 4 mg Hydroxyzine Pamoate (Vistaril) 50 mg PO TID PRN; Protocol PRN Reason: Anxiety Last Admin: 03/06/18 11:47 Dose: 50 mg Hydroxyzine Pamoate (Vistaril) 50 mg PO HS PRN; Protocol PRN Reason: Anxiety Dextrose (Dextrose 5% In Water 1000 Ml) 1,000 mls @ 0 mls/hr IV .Q0M PRN; Protocol PRN Reason: Hypoglycemia Protocol Insulin Detemir (Levemir) 7 unit SC HS [facility] Last Admin: 03/06/18 21:16 Dose: 7 units Insulin Human Regular (Humulin R Low) 0 units SC [facility]; Protocol Last Admin: 03/06/18 17:45 Dose: 1 unit Magnesium Hydroxide (Milk Of Magnesia) 30 ml PO DAILY PRN PRN Reason: Constipation Metformin HCl (Glucophage) 1,000 mg PO AC [facility] Last Admin: 03/04/18 11:44 Dose: 1,000 mg Nicotine (Nicoderm Cq) 1 patch TD DAILY [facility] Last Admin: 03/06/18 08:36 Dose: 1 patch Ondansetron HCl (Zofran Odt) 4 mg PO BID PRN PRN Reason: Nausea/Vomiting Last Admin: 03/03/18 12:49 Dose: 4 mg Propranolol HCl (Inderal) 20 mg PO BID [facility] Last Admin: 03/06/18 17:40 Dose: 20 mg Quetiapine Fumarate (Seroquel) 100 mg PO HS [facility]; Protocol Last Admin: 03/06/18 21:15 Dose: 100 mg Sitagliptin Phosphate (Januvia) 100 mg PO DAILY [facility] Last Admin: 03/05/18 09:11 Dose: 100 mg Ziprasidone (Geodon Inj) 20 mg IM Q6H PRN; Protocol PRN Reason: severe agitaiton/psychosis Ziprasidone (Geodon Cap) 20 mg PO Q6H PRN; Protocol PRN Reason: psychosis/agitation - Labs Labs: 03/06/18 11:45 03/05/18 07:43 - Constitutional Appears: Non-toxic, No Acute Distress - Head Exam Head Exam: NORMAL INSPECTION, NORMOCEPHALIC - Eye Exam Eye Exam: EOMI, Normal appearance. absent: Nystagmus, Scleral icterus - ENT Exam ENT Exam: Mucous Membranes Moist - Respiratory Exam Respiratory Exam: Clear to Ausculation Bilateral, NORMAL BREATHING PATTERN. absent: Rales, Rhonchi, Wheezes - Cardiovascular Exam Cardiovascular Exam: REGULAR RHYTHM, +S1, +S2 - GI/Abdominal Exam GI & Abdominal Exam: Soft, Normal Bowel Sounds. absent: Distended, Firm, Guarding, Tenderness - Extremities Exam Extremities Exam: Full ROM, Normal Inspection - Back Exam Back Exam: NORMAL INSPECTION. absent: CVA tenderness (L), CVA tenderness (R) - Neurological Exam Neurological Exam: Alert, Awake, Oriented x3 - Psychiatric Exam Psychiatric exam: Anxious, Depressed - Skin Skin Exam: Intact, Normal Color Assessment and Plan - Assessment and Plan (Free Text) Assessment: Patient is a 42 year old male with extensive psych history, diabetes, dyslipidemia presents to hospital for suicidal ideations and depression. Medicine was consulted for ongoing episodes of diarrhea which are currently re solved with medication management Plan: Diarrhea Held milk of magnesia Held metformin Held Januvia Patient reports no episodes today Continue to monitor DM2 ACHS ISS- low dose Glimperide 4mg po daily Levemir 7 units Abnormal EKG Cardio Consult- Dr. Razo- recommend continuing current Amaryl, metformin, Lipitor, Inderal. Obtain echo, CBC, TSH, and one more set of troponins CXR reviewed- resulted WNL Echo pending 03/03/18 EKG -atrial trigeminiy; ASMI; STTW changes c/w ischemia; changed from prior 03/06/18 repeat EKG- sinus bradycardia , rate of 56, atrial trigeminy and poor R- wave progression. Medical Management discussed with Dr. Baird <Nils Baird - Last Filed: 03/07/18 08:12> Objective - Vital Signs/Intake and Output Vital Signs (last 24 hours): Temp Pulse Resp BP Pulse Ox 97.4 F L 51 L 20 119/71 96 03/07/18 07:01 03/07/18 07:01 03/07/18 07:01 03/07/18 07:01 03/03/18 08:29 - Medications Medications: Current Medications Acetaminophen (Tylenol 325mg Tab) 650 mg PO Q6H PRN PRN Reason: Pain, moderate (4-7) Al Hydrox/Mg Hydrox/Simethicone (Maalox Plus 30 Ml) 30 ml PO DAILY PRN PRN Reason: Indigestion / Heartburn Last Admin: 03/04/18 11:01 Dose: 30 ml Alprazolam (Xanax) 1 mg PO BID [facility]; Protocol Last Admin: 03/06/18 17:40 Dose: 1 mg Alprazolam (Xanax) 1 mg PO HS [facility]; Protocol Last Admin: 03/06/18 21:16 Dose: 1 mg Atorvastatin Calcium (Lipitor) 20 mg PO DIN [facility] Last Admin: 03/06/18 17:40 Dose: 20 mg Cholecalciferol (Vitamin D) 1,000 intlu PO DAILY [facility] Last Admin: 03/06/18 08:38 Dose: 1,000 intlu Dextrose (Dextrose 50% Inj) 0 ml IV STAT PRN; Protocol PRN Reason: Hypoglycemia Protocol Glimepiride (Amaryl) 4 mg PO DAILY [facility] Last Admin: 03/06/18 08:38 Dose: 4 mg Hydroxyzine Pamoate (Vistaril) 50 mg PO TID PRN; Protocol PRN Reason: Anxiety Last Admin: 03/06/18 11:47 Dose: 50 mg Hydroxyzine Pamoate (Vistaril) 50 mg PO HS PRN; Protocol PRN Reason: Anxiety Dextrose (Dextrose 5% In Water 1000 Ml) 1,000 mls @ 0 mls/hr IV .Q0M PRN; Protocol PRN Reason: Hypoglycemia Protocol Insulin Detemir (Levemir) 7 unit SC HS [facility] Last Admin: 03/06/18 21:16 Dose: 7 units Insulin Human Regular (Humulin R Low) 0 units SC [facility]; Protocol Last Admin: 03/06/18 21:55 Dose: Not Given Magnesium Hydroxide (Milk Of Magnesia) 30 ml PO DAILY PRN PRN Reason: Constipation Metformin HCl (Glucophage) 1,000 mg PO AC [facility] Last Admin: 03/04/18 11:44 Dose: 1,000 mg Nicotine (Nicoderm Cq) 1 patch TD DAILY [facility] Last Admin: 03/06/18 08:36 Dose: 1 patch Ondansetron HCl (Zofran Odt) 4 mg PO BID PRN PRN Reason: Nausea/Vomiting Last Admin: 03/03/18 12:49 Dose: 4 mg Propranolol HCl (Inderal) 20 mg PO BID [facility] Last Admin: 03/06/18 17:40 Dose: 20 mg Quetiapine Fumarate (Seroquel) 100 mg PO HS [facility]; Protocol Last Admin: 03/06/18 21:15 Dose: 100 mg Sitagliptin Phosphate (Januvia) 100 mg PO DAILY [facility] Last Admin: 03/05/18 09:11 Dose: 100 mg Ziprasidone (Geodon Inj) 20 mg IM Q6H PRN; Protocol PRN Reason: severe agitaiton/psychosis Ziprasidone (Geodon Cap) 20 mg PO Q6H PRN; Protocol PRN Reason: psychosis/agitation - Labs Labs: 03/06/18 11:45 03/05/18 07:43 Attending/Attestation - Attestation I have personally seen and examined this patient.: Yes I have fully participated in the care of the patient.: Yes I have reviewed all pertinent clinical information, including history, physical exam and plan: Yes Notes (Text): 03/06/18 42 year old male with past medical history of diabetes and anxiety current admitted under psychiatric unit for depression, SI and anxiety. Medical consultation was requested for medical management and diarrhea. Diarrhea has now resolved. His metformin is on hold. A1c is 6.8. Continue with insulin ss. He is on glimepiride. Would recommend to decrease levemir dose to prevent hypoglycemic episodes. Initial EKG showed atrial trigeminy. Repeat EKG this morning is sinus bradycardia with PAC. Cardiology evaluation was appreciated. Troponin is negative. TSH is normal. CXR is negative. Echocardiogram showed aortic root mildly enlarged. Patient is on propranolol. Follow up with cardiology recommendations. Nils Baird MD Hospitalist.
[2018-03-07] MEDS: Insulin Reg-LOW-Coverage SC SCH ×4 (08:36→21:26)
--- NOTE | 2018-03-07 08:46 | CARD ---
APPROVED REPORT Date of service: 03/06/2018 EKG Measurement Heart [id number] <Conclusion> Sinus bradycardia with premature atrial complexes, atrial trigeminy Anteroseptal infarct, age undetermined STTW changes
[2018-03-07] MEDS: Cholecalciferol 1,000 INTLU TAB PO SCH (08:52)
--- NOTE | 2018-03-07 09:26 | PCM.PYCHPN ---
Psychiatric Progress Note - Psychiatric Progress Note Patient seen today, length of contact: 30min Problems Identified/Issues Discussed: I reviewed assessment and recent notes. I met with patient at bedside. He is communicative, fairly calm and oriented to location, month, year and circumstanc es. Patient denies any new concerns and feels a little better today. He is was able to sleep more last night "the first time in 4 days" though his night was still restless. He reports that he has a lot of anxiety and it is difficult for his mind to slow down "it feels like a hamster wheel going around and around". . Patient has been compliant with medications and denies s/e, discomfort or pain. Denies AH however indicates experiencing VH of seeing "black clouds" yesterday. Patient is coherent during our interview and doesn't appear distressed when discussing these hallucinations. Patient has been more visible on the unit. Intermittently participates in unit activities and interacts with other patients. He can tolerate group settings without demonstrating aggression, paranoia or odd behaviors. There were no behavioral issues overnight. Diagnostic Results: mood disorder NOS r/o mdd r/o severe borderline personality disorder Medication Change: No ( ) Medical Record Reviewed: Yes Mental Status Examination - Cognitive Function Orientation: Person, Place, Situation, Time Memory: Intact Attention: Poor Concentration: Poor Association: WNL Fund of Knowledge: WNL - Mood Mood: Depressed ("I am very anxious"), Anxious - Affect Affect: Constricted (but reactive), Other (anxious and labile this morning) - Formal Thought Process Formal Thought Process: No Impairment, Other (but thougth process is overinclusive) - Suicidal Ideation Suicidal Ideation: Yes - Homicidal Ideation Homicidal Ideation: No Goal/Treatment Plan - Goal/Treatment Plan Need for Continued Stay: Remain at risks for inpatient hospitalization, Severe depression anxiety, Discharge may exacerbated symptoms, Failed transitioning, Severe functional impairment Progress Toward Problem(s) and Goals/Treatment Plan: -c/w current tx and plan -No new lab results thus far -Vitals reviewed and noted below: Selected Entries 03/06/18 03/06/18 03/06/18 07:00 08:37 15:55 Temperature 97.7 F Pulse Rate 68 70 83 Respiratory 20 Rate Blood Pressure 107/52 L 112/62 123/85 03/06/18 17:40 Temperature Pulse Rate 83 Respiratory Rate Blood Pressure 123/85 Estimated Date of D/C: 03/13/18
[2018-03-07] MEDS ORDERED: Iohexol 350 MG/100 ML VIAL ONE (16:49)
--- NOTE | 2018-03-07 17:07 | PN ---
DATE: 03/07/2018 FOLLOWUP SUBJECTIVE: The patient denies any retrosternal chest pain. No shortness of breath, but he feels anxious and depressed. PHYSICAL EXAMINATION: VITAL SIGNS: Blood pressure 119/71, heart rate 60, temperature 97.4, respirations 20. HEENT: Normocephalic. CHEST: Clear. HEART: S1 and S2 regular. ABDOMEN: Soft. EXTREMITIES: No edema. LABORATORY DATA: Today's blood sugar is 116. Two sets of troponins are negative. Echocardiography study revealed bicuspid aortic valve with mildly dilated aortic root. ASSESSMENT: 1. Depression and suicidal ideations. 2. Bicuspid aortic valve. 3. Rule out aortopathy. 4. Uncontrolled diabetes mellitus. RECOMMENDATIONS: Continue current Amaryl, Glucophage, Inderal, Lipitor. A chest CT angio is ordered to evaluate the thoracic aorta. Juanjo Razo MD
--- NOTE | 2018-03-07 17:21 | CT ---
Date of service: 03/07/2018 PROCEDURE: CT Chest with contrast HISTORY: Aortopathy COMPARISON: None available. TECHNIQUE: Contiguous axial images were obtained through the chest with intravenous contrast enhancement. Sagittal and coronal reconstructions were performed. IV contrast: 90 cc Omnipaque 350. Radiation dose (DLP): 338.52 mGy-cm. This CT exam was performed using one or more of the following dose reduction techniques: Automated exposure control, adjustment of the mA and/or kV according to patient size, and/or use of iterative reconstruction technique. FINDINGS: LUNGS: Clear lungs. Visualized airway clear. MEDIASTINUM: Mildly aneurysmal ascending aorta 4.3 x 4.4 cm. Aortic arch and descending aorta are unremarkable/non aneurysmal without evidence of dissection or other pathologic process. Normal sized heart. Main pulmonary artery unremarkable. No vascular congestion. No lymphadenopathy. PLEURA: No pleural fluid. No pneumothorax. BONES: No fracture. No destructive lesion. UPPER ABDOMEN: Grossly unremarkable. OTHER FINDINGS: None. IMPRESSION: Mildly dilated ascending aorta. Orthogonal measurements 4.3 x 4.4 cm. Arch and descending aorta are non aneurysmal. Otherwise unremarkable study.
[2018-03-07] MEDS: Insulin Detemir 100 units/ml Vial (Levemir) SC SCH (21:25)
[2018-03-08] MEDS: Insulin Reg-LOW-Coverage SC SCH ×4 (08:23→23:49)
[2018-03-08] MEDS: Cholecalciferol 1,000 INTLU TAB PO SCH (09:13)
--- NOTE | 2018-03-08 09:48 | PCM.PYCHPN ---
Psychiatric Progress Note - Psychiatric Progress Note Patient seen today, length of contact: 30min Problems Identified/Issues Discussed: I reviewed recent notes and patient was interviewed at bedside again this morning. He is communicative, fairly calm and oriented to location, month, year and circumstances. Patient still reports having a lot of anxiety and depression. He still indicates that it is hard for his mind to slow down. Reports feeling helpless and hopeless about the fact that he suffers from both depression, anxiety and manic symptoms. In this regard he hasn't been able to find a beneficial medication regiment. Patient reports that seroquel really helps him with sleep however he feels hungover the next day. He is agreeable to decrease seroquel just a little to improve this side effect. Denies AH or VH this weekend however indicates experiencing VH of seeing "black clouds" on Friday. Patient is coherent during our interview and doesn't appear distressed when discussing these hallucinations. Patient has been more visible on the unit. Intermittently participates in unit activities and interacts with other patients. He can tolerate group settings without demonstrating aggression, paranoia or odd behaviors. There were no behavioral issues over the weekend. Diagnostic Results: mood disorder NOS r/o mdd r/o severe borderline personality disorder Medication Change: No ( ) Medical Record Reviewed: Yes Mental Status Examination - Cognitive Function Orientation: Person, Place, Situation, Time Memory: Intact Attention: Poor Concentration: Poor Association: WNL Fund of Knowledge: WNL - Mood Mood: Depressed ("I am very anxious"), Anxious - Affect Affect: Constricted (but reactive), Other (anxious and labile this morning) - Formal Thought Process Formal Thought Process: No Impairment, Hallucinations ("sa ) - Suicidal Ideation Suicidal Ideation: No - Homicidal Ideation Homicidal Ideation: No Goal/Treatment Plan - Goal/Treatment Plan Need for Continued Stay: Remain at risks for inpatient hospitalization, Severe depression anxiety, Discharge may exacerbated symptoms, Failed transitioning, Severe functional impairment Progress Toward Problem(s) and Goals/Treatment Plan: -c/w current tx and plan -Decreased Seroquel to 75 mg po HS to help with patient's complaints of daytime sedation -Initiated Paxil 10 mg HS for depression and anxiety. This medication is much less likely to precipitate a manic episode and internal agitation than zoloft. -Appreciate f/u by Dr. Razo on 03/07/18~c/w glucophage, amaryl, lipitor and inderal. Chest CT angio ordered to evaluate the thoracic aorta -No new lab results -Vitals reviewed and noted below: Selected Entries 03/07/18 03/07/18 03/07/18 07:01 08:52 16:30 Temperature 97.4 F L Pulse Rate 51 L 60 63 Respiratory 20 Rate Blood Pressure 119/71 119/71 102/65 03/07/18 16:34 Temperature Pulse Rate 63 Respiratory Rate Blood Pressure 104/64 Estimated Date of D/C: 03/13/18
[2018-03-08] MEDS: Insulin Detemir 100 units/ml Vial (Levemir) SC SCH (21:20)
--- NOTE | 2018-03-08 21:58 | CP.PCM.CON ---
History of Present Illness - History of Present Illness History of Present Illness: Thoracic Surgery - Dr. Bae 42yo M w/ history of IDDM, HL, Depression and Anxiety, admitted to the inpatient psychiatric unit on 03/03 with suicidal ideation and depression. Pt has an extensive history of psychiatric treatment for both anxiety and depression at multiple other hospitals including several prolonged inpatient stays. Cardiology was consulted during this admission and an Echo was done which showed a Bicuspid aortic valve and dilation of the aortic root. A follow-up CT chest was then done which demonstrated dilation of the aortic root/ascending aorta to 4.0x4.3cm. CT surgery was consulted for Bicuspid aortic valve and Aortopathy. Pt. describes his current symptoms as anxiety and panic related. He admits to o ccasional feelings of palpitations or heart racing. He denies any chest pain or difficulty breathing. Pt. denies any cardiac history. He states that his father had a significant history of coronary artery disease and required CABG, however he denies any family history of aortic disease. Review of Systems - Review of Systems All systems: reviewed and no additional remarkable complaints except (as per HPI) Past Patient History - Past Social History Smoking Status: Heavy Smoker > 10 Cigarettes Daily - CARDIAC Hx Cardiac Disorders: Yes Hx Hypercholesterolemia: Yes - PULMONARY Hx Respiratory Disorders: No - NEUROLOGICAL Hx Neurological Disorder: No - HEENT Hx HEENT Problems: No - RENAL Hx Chronic Kidney Disease: No - ENDOCRINE/METABOLIC Hx Endocrine Disorders: Yes Hx Diabetes Mellitus Type 2: Yes - HEMATOLOGICAL/ONCOLOGICAL Hx Blood Disorders: No - INTEGUMENTARY Hx Dermatological Problems: No - MUSCULOSKELETAL/RHEUMATOLOGICAL Hx Musculoskeletal Disorders: No - GASTROINTESTINAL Hx Gastrointestinal Disorders: No - GENITOURINARY/GYNECOLOGICAL Hx Genitourinary Disorders: No - PSYCHIATRIC Hx Anxiety: Yes Hx Bipolar Disorder: Yes Hx Depression: Yes Hx Substance Use: No - SURGICAL HISTORY Hx Surgeries: No Meds Allergies/Adverse Reactions: Allergies Allergy/AdvReac Type Severity Reaction Status Date / Time No Known Allergies Allergy Verified 03/03/18 16:08 - Medications Medications: Current Medications Acetaminophen (Tylenol 325mg Tab) 650 mg PO Q6H PRN PRN Reason: Pain, moderate (4-7) Al Hydrox/Mg Hydrox/Simethicone (Maalox Plus 30 Ml) 30 ml PO DAILY PRN PRN Reason: Indigestion / Heartburn Last Admin: 09/26/18 11:01 Dose: 30 ml Alprazolam (Xanax) 1 mg PO BID [facility]; Protocol Last Admin: 03/08/18 16:47 Dose: 1 mg Alprazolam (Xanax) 1 mg PO HS [facility]; Protocol Last Admin: 03/08/18 21:15 Dose: 1 mg Atorvastatin Calcium (Lipitor) 20 mg PO DIN [facility] Last Admin: 03/08/18 16:52 Dose: 20 mg Cholecalciferol (Vitamin D) 1,000 intlu PO DAILY [facility] Last Admin: 03/08/18 09:13 Dose: 1,000 intlu Dextrose (Dextrose 50% Inj) 0 ml IV STAT PRN; Protocol PRN Reason: Hypoglycemia Protocol Glimepiride (Amaryl) 4 mg PO DAILY [facility] Last Admin: 03/08/18 09:12 Dose: 4 mg Hydroxyzine Pamoate (Vistaril) 50 mg PO TID PRN; Protocol PRN Reason: Anxiety Last Admin: 03/06/18 11:47 Dose: 50 mg Hydroxyzine Pamoate (Vistaril) 50 mg PO HS PRN; Protocol PRN Reason: Anxiety Dextrose (Dextrose 5% In Water 1000 Ml) 1,000 mls @ 0 mls/hr IV .Q0M PRN; Protocol PRN Reason: Hypoglycemia Protocol Insulin Detemir (Levemir) 7 unit [facility] Last Admin: 03/08/18 21:20 Dose: 7 units Insulin Human Regular (Humulin R Low) 0 units SC [facility]; Protocol Last Admin: 03/08/18 16:50 Dose: 1 unit Magnesium Hydroxide (Milk Of Magnesia) 30 ml PO DAILY PRN PRN Reason: Constipation Metformin HCl (Glucophage) 1,000 mg PO AC [facility] Last Admin: 03/04/18 11:44 Dose: 1,000 mg Nicotine (Nicoderm Cq) 1 patch TD DAILY [facility] Last Admin: 03/08/18 09:12 Dose: 1 patch Ondansetron HCl (Zofran Odt) 4 mg PO BID PRN PRN Reason: Nausea/Vomiting Last Admin: 03/03/18 12:49 Dose: 4 mg Paroxetine HCl (Paxil) 10 mg PO HS [facility] Last Admin: 03/08/18 21:15 Dose: 10 mg Propranolol HCl (Inderal) 20 mg PO BID [facility] Last Admin: 03/08/18 16:47 Dose: 20 mg Quetiapine Fumarate (Seroquel) 75 mg PO HS [facility]; Protocol Last Admin: 03/08/18 21:15 Dose: 75 mg Sitagliptin Phosphate (Januvia) 100 mg PO DAILY [facility] Last Admin: 03/05/18 09:11 Dose: 100 mg Ziprasidone (Geodon Inj) 20 mg IM Q6H PRN; Protocol PRN Reason: severe agitaiton/psychosis Ziprasidone (Geodon Cap) 20 mg PO Q6H PRN; Protocol PRN Reason: psychosis/agitation Last Admin: 03/08/18 21:14 Dose: 20 mg Physical Exam - Constitutional Appears: No Acute Distress - Head Exam Head Exam: ATRAUMATIC, NORMAL INSPECTION, NORMOCEPHALIC - Eye Exam Eye Exam: Normal appearance - Respiratory Exam Respiratory Exam: NORMAL BREATHING PATTERN. absent: Respiratory Distress - Cardiovascular Exam Cardiovascular Exam: REGULAR RHYTHM - Neurological Exam Neurological exam: Alert, Oriented x3 - Psychiatric Exam Psychiatric exam: Anxious - Skin Skin Exam: Dry, Intact Results - Vital Signs Recent Vital Signs: Last Vital Signs Temp 98.3 F 03/08/18 07:26 Pulse 72 03/08/18 16:47 Resp 20 03/08/18 07:26 BP 108/69 03/08/18 16:47 Pulse Ox 96 03/03/18 08:29 - Labs Result Diagrams: 03/06/18 11:45 03/05/18 07:43 Labs: Laboratory Results - last 24 hr 03/07/18 03/08/18 03/08/18 21:23 07:35 11:45 POC Glucose (mg/dL) 247 H 114 H 231 H 03/08/18 16:42 POC Glucose (mg/dL) 151 H - Imaging and Cardiology CT scan - chest Status: Image reviewed by me, Report reviewed by me Assessment & Plan - Assessment and Plan (Free Text) Assessment: 42M with PMH of HL, IDDM, Anxiety and Depression, found to have a bicuspid aortic valve with aortic root dilation to 4.0x4.3cm Plan: -BP Control, Avoid Hypertension, initiate anti-hypertensive meds if needed -Continue Inderal as per Dr. Razo -Current recommendations are for surgery at approx. size of 5.5cm for patients without a significant family hx or other risk factors such as rapidly increasing size -Discussed with patient that he will need to have close follow-up and jesus rveillance imaging of the aneurysm Further recs as per Dr. Kathia Cruz PGY4
--- NOTE | 2018-03-09 08:46 | PN ---
DATE: 03/08/2018 SUBJECTIVE: The patient denies chest pain or palpitations. PHYSICAL EXAMINATION: VITAL SIGNS: Blood pressure 122/80, heart rate 66, temperature 98.3, respirations 20. HEENT: Normocephalic. CHEST: Clear. HEART: S1 and S2, regular. EXTREMITIES: No edema. Chest CT angio revealed mildly dilated ascending aorta measures 4.3 x 4.4 cm. The arch and descending aorta are non-aneurysmal. ASSESSMENT: 1. Bicuspid aortic valve with aortopathy and mildly dilated ascending thoracic aorta, measuring 4.3 x 4.4 cm. 2. Depression and anxiety. 3. Uncontrolled diabetes mellitus. RECOMMENDATIONS: Continue current Amaryl, Glucophage, Inderal, Lipitor, Paxil, Seroquel. I will further discuss the case with a cardiothoracic surgeon given the fact that the patient has bicuspid aortic valve and criteria of replacing the valve and the ascending aorta grafting starts at size 4.5 cm because of the associated aortopathy; however, the psychological condition of the patient does not allow for such surgery at this time. The case will be also discussed with a psychiatrist. Juanjo Razo MD
[2018-03-09] MEDS: Cholecalciferol 1,000 INTLU TAB PO SCH (08:49)
[2018-03-09] MEDS: Insulin Reg-LOW-Coverage SC SCH ×4 (08:51→21:28)
--- NOTE | 2018-03-09 16:59 | PCM.PYCHPN ---
Psychiatric Progress Note - Psychiatric Progress Note Patient seen today, length of contact: 30min Patient Chief Complaint: "[facility] Problems Identified/Issues Discussed: Suicide/ homicide prevention, past psychiatric h/o, current psychiatric symptoms, medical problems, risk/benefits and alternatives of medications, medications compliance, coping strategies, substance abuse h/o, relapse prevention, importance of follow up with psychiatrist and therapist, discharge plan. Medical Problems: pt c/o diarrhea med consult called cardiology consult appreciated pt will be seen by thoracic surgeon Diagnostic Results: 03/04/18 07:30 Lab Results 03/04/18 15:51: POC Glucose (mg/dL) 114 H 03/04/18 07:30: TSH 3rd Generation 1.49 03/04/18 07:30: Sodium 141, Potassium 4.2, Chloride 102, Carbon Dioxide 33, Anion Gap 11, BUN 11, Creatinine 1.0, Est GFR ( Amer) > 60, Est GFR (Non- Af Amer) > 60, Random Glucose 133 H, Fasting Glucose 133 H, Calcium 9.4, Total Bilirubin 0.7, AST 13 L, ALT 32, Alkaline Phosphatase 62, Total Protein 6.3, Albumin 3.9, Globulin 2.4, Albumin/Globulin Ratio 1.6, Triglycerides 137, Chol esterol 137, LDL Cholesterol Direct 77, HDL Cholesterol 35 Vital Signs Temp Pulse Pulse Resp BP Pulse Ox 03/04/18 16:00 68 121/84 03/04/18 07:02 97.3 F L 65 20 104/69 03/03/18 16:14 68 119/70 03/03/18 16:00 68 119/70 03/03/18 11:00 65 15 03/03/18 08:30 97.9 F 65 15 120/85 03/03/18 08:29 97.9 F 62 17 127/85 96 03/06/18 03/06/18 03/06/18 11:45 11:45 11:45 WBC RBC Hgb Hct MCV MCH MCHC RDW Plt Count MPV D-Dimer, Quantitative < 200 Sodium Potassium Chloride Carbon Dioxide Anion Gap BUN Creatinine Est GFR ( Amer) Est GFR (Non-Af Amer) POC Glucose (mg/dL) Random Glucose Fasting Glucose Hemoglobin A1c Calcium Total Bilirubin AST ALT Alkaline Phosphatase Troponin I < 0.01 Total Protein Albumin Globulin Albumin/Globulin Ratio Triglycerides Cholesterol LDL Cholesterol Direct HDL Cholesterol TSH 3rd Generation 1.03 RPR 03/06/18 03/06/18 03/06/18 11:45 11:29 07:40 WBC 6.6 RBC 5.34 Hgb 15.6 Hct 44.2 MCV 82.8 MCH 29.2 MCHC 35.3 RDW 13.0 Plt Count 142 MPV 9.9 D-Dimer, Quantitative Sodium Potassium Chloride Carbon Dioxide Anion Gap BUN Creatinine Est GFR ( Amer) Est GFR (Non-Af Amer) POC Glucose (mg/dL) 174 H 76 Random Glucose Fasting Glucose Hemoglobin A1c Calcium Total Bilirubin AST ALT Alkaline Phosphatase Troponin I Total Protein Albumin Globulin Albumin/Globulin Ratio Triglycerides Cholesterol LDL Cholesterol Direct HDL Cholesterol TSH 3rd Generation RPR 03/05/18 03/05/18 03/05/18 20:17 20:00 16:23 WBC RBC Hgb Hct MCV MCH MCHC RDW Plt Count MPV D-Dimer, Quantitative Sodium Potassium Chloride Carbon Dioxide Anion Gap BUN Creatinine Est GFR ( Amer) Est GFR (Non-Af Amer) POC Glucose (mg/dL) 246 H 184 H Random Glucose Fasting Glucose Hemoglobin A1c Calcium Total Bilirubin AST ALT Alkaline Phosphatase Troponin I < 0.01 Total Protein Albumin Globulin Albumin/Globulin Ratio Triglycerides Cholesterol LDL Cholesterol Direct HDL Cholesterol TSH 3rd Generation RPR 03/05/18 03/05/18 03/05/18 11:01 07:43 07:30 WBC RBC Hgb Hct MCV MCH MCHC RDW Plt Count MPV D-Dimer, Quantitative Sodium 141 Potassium 4.3 Chloride 101 Carbon Dioxide 31 Anion Gap 13 BUN 13 Creatinine 0.9 Est GFR ( Amer) > 60 Est GFR (Non-Af Amer) > 60 POC Glucose (mg/dL) 145 H Random Glucose 119 H Fasting Glucose Hemoglobin A1c 6.8 H Calcium 9.4 Total Bilirubin AST ALT Alkaline Phosphatase Troponin I Total Protein Albumin Globulin Albumin/Globulin Ratio Triglycerides Cholesterol LDL Cholesterol Direct HDL Cholesterol TSH 3rd Generation RPR 03/05/18 03/04/18 03/04/18 07:16 21:03 15:51 WBC RBC Hgb Hct MCV MCH MCHC RDW Plt Count MPV D-Dimer, Quantitative Sodium Potassium Chloride Carbon Dioxide Anion Gap BUN Creatinine Est GFR ( Amer) Est GFR (Non-Af Amer) POC Glucose (mg/dL) 122 H 209 H 114 H Random Glucose Fasting Glucose Hemoglobin A1c Calcium Total Bilirubin AST ALT Alkaline Phosphatase Troponin I Total Protein Albumin Globulin Albumin/Globulin Ratio Triglycerides Cholesterol LDL Cholesterol Direct HDL Cholesterol TSH 3rd Generation RPR 03/04/18 03/04/18 03/04/18 07:30 07:30 07:30 WBC RBC Hgb Hct MCV MCH MCHC RDW Plt Count MPV D-Dimer, Quantitative Sodium 141 Potassium 4.2 Chloride 102 Carbon Dioxide 33 Anion Gap 11 BUN 11 Creatinine 1.0 Est GFR ( Amer) > 60 Est GFR (Non-Af Amer) > 60 POC Glucose (mg/dL) Random Glucose 133 H Fasting Glucose 133 H Hemoglobin A1c Calcium 9.4 Total Bilirubin 0.7 AST 13 L ALT 32 Alkaline Phosphatase 62 Troponin I Total Protein 6.3 Albumin 3.9 Globulin 2.4 Albumin/Globulin Ratio 1.6 Triglycerides 137 Cholesterol 137 LDL Cholesterol Direct 77 HDL Cholesterol 35 TSH 3rd Generation 1.49 RPR Nonreactive Temp Pulse Resp BP Pulse Ox 97.7 F 83 20 123/85 96 03/06/18 07:00 03/06/18 15:55 03/06/18 07:00 03/06/18 15:55 03/03/18 08:[address] of the chest bicuspid aortic valve with aortic root dilation to 4.0x4.3cm DSM 5 Symptoms Update: shortly patient is 42-year-old male, self reported history of depression and anxiety, multiple admissions to the psychiatric inpatient unit, including [facility] for one year, recently discharged from [facility] ago, [facility] [place], patient has intensive case management as well as nursing staff treatment team, pt denied history of suicidal attempts, one day ago patient tried to cut his forearm (no sutures, very superficial), patient came to [facility] looking for help for his depressive symptoms, anxiety "30/12" inability to function, patient was accepted by nurse practitioner overnight, patient requires further evaluation and stabilization, medication adjustment. patient was seen at the treatment team meeting room, pt is dramatic bombarding this science writer with all of the symptoms: "anxious/sweating" pt does not appear to be anxious, not sweating, Ps in 60th. "depression and not able to take care of my ADLs", pt took shower, shaved, has good appetite, slept 8 hrs "from 9:45pm till 5:45 am", at the same time pt was inconsistent saying that he was seen by medical team at 10pm yesterday, but as per pt he fell asleep at 9:45pm. "nothing is helping me, I even had ECT treatment, what did you try me on?", pt was c/o side effects on zoloft, was c/o over sedation on seroquel but refused to decrease the dose. pt is passive aggressive. pt said "I spoke to the nurse yesterday, [facility]", "do you think that I need to go to the [facility]?", when this science writer explained that pt does not meet a criteria, pt started to ask about criteria in order to be transferred. pt has tendency of giving himself diagnosis such as "manic episodes". from this science writer observation all of the symptoms are doubtful, pt is aware of his new findings, pt was able to give this science writer narrative description what was discussed with him by cardiology and medical team, concentration and memory are intact. discussed with Cardiology team today , will call for thoracic surgery consult. collaterals from [facility], see notes for more detailed info. so far patient tolerates medications well, aims 0, no EPS. Impression: DSM 5 Diagnosis: mood disorder NOS r/o mdd r/o severe borderline personality disorder r/o venkata Medication Change: Yes (hernandez) Medical Record Reviewed: Yes Consults ordered or reviewed: med consult called Mental Status Examination - Cognitive Function Orientation: Person, Place, Situation, Time Memory: Intact Attention: Poor (good) Concentration: Poor (good) Association: WNL Fund of Knowledge: WNL - Mood Mood: Depressed ("I am very anxious"), Anxious - Affect Affect: Constricted (but reactive), Other (anxious and labile this morning) - Formal Thought Process Formal Thought Process: No Impairment, Hallucinations (denied) - Suicidal Ideation Suicidal Ideation: No - Homicidal Ideation Homicidal Ideation: No Goal/Treatment Plan - Goal/Treatment Plan Need for Continued Stay: Remain at risks for inpatient hospitalization, Severe depression anxiety, Discharge may exacerbated symptoms, Failed transitioning, Severe functional impairment Progress Toward Problem(s) and Goals/Treatment Plan: milieu/structure and supportive therapy Treatment plan was discussed in details medications for dyslipidemia as well as diabetes resumed Seroquel on hold gedodon 20mg amhs for mood stabilization Xanax 1 mg 3 times a day for anxiety paxil hs for depression and anxiety vistaril EKG was repeated showed Atrial trigeminy, ASMI, age unknonw, STTW changes, Cardiology consult appreciated will f/u on Echocardiogram TSH, free T4 Medical consult will be considered SW consultation for discharge plan and social issues Family involvement Follow up on labs Will monitor closely Pt was educated about risk/benefits and alternatives of medications, coping strategies (safety plan, suicide prevention), relapse prevention, importance of follow up with psychiatrist and therapist, stay away from drugs/alcohol/smokingprescriptions Estimated Date of D/C: 03/13/18
[2018-03-09] MEDS: Insulin Detemir 100 units/ml Vial (Levemir) SC SCH (21:28)
--- NOTE | 2018-03-09 22:33 | PN ---
DATE: 03/09/2018 SUBJECTIVE: The patient denies any chest pain, back pain, diaphoresis or shortness of breath. PHYSICAL EXAMINATION: VITAL SIGNS: Blood pressure 119/81, heart rate 77, temperature 97.6, respirations 20. HEENT: Normocephalic. CHEST: Clear. HEART: S1, S2 regular. EXTREMITIES: No edema. LABORATORY DATA: Today's blood sugars are 144 and 244. ASSESSMENT: 1. Bicuspid aortic valve. 2. Aortopathy. 3. Depression and anxiety. 4. Uncontrolled diabetes mellitus. RECOMMENDATIONS: Continue current Amaryl 4 mg orally daily, Glucophage 1 g daily, Inderal 20 mg twice a day, Lipitor 20 mg once a day, nicotine patch. Obtain BMP following the CT scan with contrast study. I did request cardiothoracic surgeon consultation from Dr. Bae. I did contact him myself and I discussed the case with the psychiatrist Dr. Gregoria Arboleda. Juanjo Razo MD
[2018-03-10 08:30] LABS: BLOOD UREA NITROGEN 16 mg/dL (7-21); CALCIUM 9.2 mg/dL (8.4-10.5); GFR NON-AFRICAN AMERICAN > 60
[2018-03-10] MEDS: Insulin Reg-LOW-Coverage SC SCH ×4 (09:09→22:00)
[2018-03-10] MEDS: Cholecalciferol 1,000 INTLU TAB PO SCH (09:10)
--- NOTE | 2018-03-10 16:46 | PCM.PYCHPN ---
Psychiatric Progress Note - Psychiatric Progress Note Patient seen today, length of contact: 30min Patient Chief Complaint: "I have difficulties with my ADLs", patient is able to take shower, shaved, participate in group activities, has good appetite ADLs is good. Problems Identified/Issues Discussed: Suicide/ homicide prevention, past psychiatric h/o, current psychiatric symptoms, medical problems, risk/benefits and alternatives of medications, medications compliance, coping strategies, substance abuse h/o, relapse prevention, importance of follow up with psychiatrist and therapist, discharge plan. Medical Problems: pt c/o diarrhea med consult called cardiology consult appreciated pt will be seen by thoracic surgeon Diagnostic Results: 03/04/18 07:30 Lab Results 03/04/18 15:51: POC Glucose (mg/dL) 114 H 03/04/18 07:30: TSH 3rd Generation 1.49 03/04/18 07:30: Sodium 141, Potassium 4.2, Chloride 102, Carbon Dioxide 33, Anion Gap 11, BUN 11, Creatinine 1.0, Est GFR ( Amer) > 60, Est GFR (Non- Af Amer) > 60, Random Glucose 133 H, Fasting Glucose 133 H, Calcium 9.4, Total Bilirubin 0.7, AST 13 L, ALT 32, Alkaline Phosphatase 62, Total Protein 6.3, Albumin 3.9, Globulin 2.4, Albumin/Globulin Ratio 1.6, Triglycerides 137, Ch olesterol 137, LDL Cholesterol Direct 77, HDL Cholesterol 35 Vital Signs Temp Pulse Pulse Resp BP Pulse Ox 03/04/18 16:00 68 121/84 03/04/18 07:02 97.3 F L 65 20 104/69 03/03/18 16:14 68 119/70 03/03/18 16:00 68 119/70 03/03/18 11:00 65 15 03/03/18 08:30 97.9 F 65 15 120/85 03/03/18 08:29 97.9 F 62 17 127/85 96 03/06/18 03/06/18 03/06/18 11:45 11:45 11:45 WBC RBC Hgb Hct MCV MCH MCHC RDW Plt Count MPV D-Dimer, Quantitative < 200 Sodium Potassium Chloride Carbon Dioxide Anion Gap BUN Creatinine Est GFR ( Amer) Est GFR (Non-Af Amer) POC Glucose (mg/dL) Random Glucose Fasting Glucose Hemoglobin A1c Calcium Total Bilirubin AST ALT Alkaline Phosphatase Troponin I < 0.01 Total Protein Albumin Globulin Albumin/Globulin Ratio Triglycerides Cholesterol LDL Cholesterol Direct HDL Cholesterol TSH 3rd Generation 1.03 RPR 03/06/18 03/06/18 03/06/18 11:45 11:29 07:40 WBC 6.6 RBC 5.34 Hgb 15.6 Hct 44.2 MCV 82.8 MCH 29.2 MCHC 35.3 RDW 13.0 Plt Count 142 MPV 9.9 D-Dimer, Quantitative Sodium Potassium Chloride Carbon Dioxide Anion Gap BUN Creatinine Est GFR ( Amer) Est GFR (Non-Af Amer) POC Glucose (mg/dL) 174 H 76 Random Glucose Fasting Glucose Hemoglobin A1c Calcium Total Bilirubin AST ALT Alkaline Phosphatase Troponin I Total Protein Albumin Globulin Albumin/Globulin Ratio Triglycerides Cholesterol LDL Cholesterol Direct HDL Cholesterol TSH 3rd Generation RPR 03/05/18 03/05/18 03/05/18 20:17 20:00 16:23 WBC RBC Hgb Hct MCV MCH MCHC RDW Plt Count MPV D-Dimer, Quantitative Sodium Potassium Chloride Carbon Dioxide Anion Gap BUN Creatinine Est GFR ( Amer) Est GFR (Non-Af Amer) POC Glucose (mg/dL) 246 H 184 H Random Glucose Fasting Glucose Hemoglobin A1c Calcium Total Bilirubin AST ALT Alkaline Phosphatase Troponin I < 0.01 Total Protein Albumin Globulin Albumin/Globulin Ratio Triglycerides Cholesterol LDL Cholesterol Direct HDL Cholesterol TSH 3rd Generation RPR 03/05/18 03/05/18 03/05/18 11:01 07:43 07:30 WBC RBC Hgb Hct MCV MCH MCHC RDW Plt Count MPV D-Dimer, Quantitative Sodium 141 Potassium 4.3 Chloride 101 Carbon Dioxide 31 Anion Gap 13 BUN 13 Creatinine 0.9 Est GFR ( Amer) > 60 Est GFR (Non-Af Amer) > 60 POC Glucose (mg/dL) 145 H Random Glucose 119 H Fasting Glucose Hemoglobin A1c 6.8 H Calcium 9.4 Total Bilirubin AST ALT Alkaline Phosphatase Troponin I Total Protein Albumin Globulin Albumin/Globulin Ratio Triglycerides Cholesterol LDL Cholesterol Direct HDL Cholesterol TSH 3rd Generation RPR 03/05/18 03/04/18 03/04/18 07:16 21:03 15:51 WBC RBC Hgb Hct MCV MCH MCHC RDW Plt Count MPV D-Dimer, Quantitative Sodium Potassium Chloride Carbon Dioxide Anion Gap BUN Creatinine Est GFR ( Amer) Est GFR (Non-Af Amer) POC Glucose (mg/dL) 122 H 209 H 114 H Random Glucose Fasting Glucose Hemoglobin A1c Calcium Total Bilirubin AST ALT Alkaline Phosphatase Troponin I Total Protein Albumin Globulin Albumin/Globulin Ratio Triglycerides Cholesterol LDL Cholesterol Direct HDL Cholesterol TSH 3rd Generation RPR 03/04/18 03/04/18 03/04/18 07:30 07:30 07:30 WBC RBC Hgb Hct MCV MCH MCHC RDW Plt Count MPV D-Dimer, Quantitative Sodium 141 Potassium 4.2 Chloride 102 Carbon Dioxide 33 Anion Gap 11 BUN 11 Creatinine 1.0 Est GFR ( Amer) > 60 Est GFR (Non-Af Amer) > 60 POC Glucose (mg/dL) Random Glucose 133 H Fasting Glucose 133 H Hemoglobin A1c Calcium 9.4 Total Bilirubin 0.7 AST 13 L ALT 32 Alkaline Phosphatase 62 Troponin I Total Protein 6.3 Albumin 3.9 Globulin 2.4 Albumin/Globulin Ratio 1.6 Triglycerides 137 Cholesterol 137 LDL Cholesterol Direct 77 HDL Cholesterol 35 TSH 3rd Generation 1.49 RPR Nonreactive Temp Pulse Resp BP Pulse Ox 97.7 F 83 20 123/85 96 03/06/18 07:00 03/06/18 15:55 03/06/18 07:00 03/06/18 15:55 03/03/18 08:[address] of the chest bicuspid aortic valve with aortic root dilation to 4.0x4.3cm DSM 5 Symptoms Update: shortly patient is 42-year-old male, self reported history of depression and anxiety, multiple admissions to the psychiatric inpatient unit, including [facility] for one year, recently discharged from [facility] 2 weeks ago, [facility] [place], patient has intensive case management as well as nursing staff treatment team, pt denied history of suicidal attempts, one day ago patient tried to cut his forearm (no sutures, very superficial), patient came to [facility] looking for help for his depressive symptoms, anxiety "30/12" inability to function, patient was accepted by nurse practitioner overnight, patient requires further evaluation and stabilization, medication adjustment. patient was seen at the hallway, pt has tendency of giving himself diagnosis and using medical terms such as "I have manic episode right now", or "I have difficulties with my ADLs even". pt presented well, but dramatic and exaggerating his symptoms. pt attends groups, no agitation or aggression. tolerated meds well, refused to be on geodon "I will stay on seroquel". discussed with Cardiology team today , and yesterday, plan to monitor every 6months,pt is aware of this plan. collaterals from [facility], see notes for more detailed info. so far patient tolerates medications well, aims 0, no EPS. Impression: DSM 5 Diagnosis: mood disorder NOS r/o mdd r/o severe borderline personality disorder r/o venkata Medication Change: Yes (seroquel resumed) Medical Record Reviewed: Yes Consults ordered or reviewed: med consult called, ppreciated Cardiology consultation appreciated Mental Status Examination - Cognitive Function Orientation: Person, Place, Situation, Time Memory: Intact Attention: Poor (good) Concentration: Poor (good) Association: WNL Fund of Knowledge: WNL - Mood Mood: Depressed ("I am very anxious"), Anxious - Affect Affect: Constricted (but reactive), Other (anxious and labile this morning) - Formal Thought Process Formal Thought Process: No Impairment - Suicidal Ideation Suicidal Ideation: No - Homicidal Ideation Homicidal Ideation: No Goal/Treatment Plan - Goal/Treatment Plan Need for Continued Stay: Remain at risks for inpatient hospitalization, Severe depression anxiety, Discharge may exacerbated symptoms, Failed transitioning, Severe functional impairment Progress Toward Problem(s) and Goals/Treatment Plan: milieu/structure and supportive therapy Treatment plan was discussed in details medications for dyslipidemia as well as diabetes resumed Seroquel 75 mg at the nighttime for mood stabilization gedodon ddiscontinued Xanax 1 mg 3 times a day for anxiety paxil hs for depression and anxiety vistaril EKG was repeated showed Atrial trigeminy, ASMI, age unknonw, STTW changes, Cardiology consult appreciated Echocardiogram appreciated TSH, free T4 Medical consult will be considered consultation for discharge plan and social issues Family involvement Follow up on labs Will monitor closely Pt was educated about risk/benefits and alternatives of medications, coping strategies (safety plan, suicide prevention), relapse prevention, importance of follow up with psychiatrist and therapist, stay away from drugs/al cohol/smokingprescriptions Estimated Date of D/C: 03/13/18
--- NOTE | 2018-03-10 17:21 | PN ---
DATE: 03/10/2018 FOLLOWUP SUBJECTIVE: The patient denies any chest pain, back pain, diaphoresis or shortness of breath. PHYSICAL EXAMINATION: VITAL SIGNS: Blood pressure 91/61, heart rate 57, temperature 97.8, respirations 18. HEENT: Normocephalic. CHEST: Clear. HEART: S1 and S2 regular. EXTREMITIES: No edema. LABORATORY DATA: Today's SMA-7 is within normal limit except for glucose of 160. A cardiothoracic surgical evaluation was conducted yesterday and the recommendation are to repeat chest CT scan with IV contrast in 6 months and follow up with Dr. Bae as an outpatient. ASSESSMENT: 1. Bicuspid aortic valve with aortopathy. 2. Uncontrolled diabetes mellitus. 3. Depression. RECOMMENDATIONS: Continue current metformin 1 g daily, Inderal 20 mg twice a day, Lipitor 20 mg once a day, Nicoderm patch besides the patient's psych medications. Follow up the recommendations of Dr. Bae, the cardiothoracic surgeon. The patient was explained in details what needs to be done and how to follow up with Dr. Bae upon discharge. Juanjo Razo MD
[2018-03-10] MEDS: Insulin Detemir 100 units/ml Vial (Levemir) SC SCH (21:46)
[2018-03-11] MEDS: Insulin Reg-LOW-Coverage SC SCH ×4 (09:45→22:42)
[2018-03-11] MEDS: Cholecalciferol 1,000 INTLU TAB PO SCH (09:47)
--- NOTE | 2018-03-11 16:29 | PN ---
DATE: 03/11/2018 FOLLOWUP SUBJECTIVE: The patient denies any chest pain, back pain or shortness of breath. PHYSICAL EXAMINATION: VITAL SIGNS: Blood pressure 103/66, heart rate 64, temperature 97.5, respirations 20. HEENT: Normocephalic. CHEST: Clear. HEART: S1 and S2 regular. EXTREMITIES: No edema. ASSESSMENT: 1. Depression. 2. Bicuspid aortic valve and aortopathy. RECOMMENDATIONS: I continued current Inderal at 20 mg twice a day. I discussed the issue with the nursing team to make sure that the patient will follow up with CT angio of the chest in [address] [facility] and I gave them name f the cardiac surgeon, Dr. Bae where the patient should follow up after a CT scan is done and all these appointments have to be arranged by the social research assistant, this way the patient does not lose followup as he lives in [place]. Juanjo Razo MD
--- NOTE | 2018-03-11 16:48 | PCM.BM ---
<Gisselle Rebolledo Y - Last Filed: 03/11/18 16:47> Treatment Plan Problems - Problems identified on initial assessmt Panic Attacks Date Initiated: 03/03/18 Time Initiated: 10:00 Assessment reference: NA Status: Active Priority: 1 Fear Date Initiated: 03/03/18 Time Initiated: 10:00 Assessment reference: NA Status: Active Priority: 2 Anxiety Date Initiated: 03/03/18 Time Initiated: 10:00 Assessment reference: NA Status: Active Priority: 3 Hopelessness/Helplessness Date Initiated: 03/03/18 Time Initiated: 10:00 Assessment reference: NA Status: Active Priority: 4 Feelings of Worthlessness Date Initiated: 03/03/18 Time Initiated: 10:00 Assessment reference: NA Status: Active Priority: 5 Ineffective Coping Date Initiated: 03/03/18 Time Initiated: 10:00 Assessment reference: NA Status: Active Priority: 6 Altered Sleep Patterns Date Initiated: 03/03/18 Time Initiated: 10:00 Assessment reference: NA Status: Active Priority: 7 Treatment assets and liabiliti Patient Assests: adapts well, cooperative, insightful, self-reliant, ADL independent, negotiates basic needs, cognitively intact, good interpersonal skills Patient Liabilities: live alone, financial problems, medical problems - Milieu Protocol Maintain good personal hygiene: daily Encourage regular showers, every shift Remind patient to perform daily oral care, every shift Assist patient to perform ADL's Maintain personal safety: every shift Educate patient to report safety concerns to staff, every shift Monitor environment for contraband/sharps Medication safety: Monitor for expected outcome, potential side effects: every shift, Assess barriers to learning: every shift, Assess readiness for medication education: every shift Milieu Narrative: milieu/structure and supportive therapy Treatment plan was discussed in details medications for dyslipidemia as well as diabetes resumed Seroquel 75 mg at the nighttime for mood stabilization gedodon ddiscontinued Xanax 1 mg 3 times a day for anxiety paxil hs for depression and anxiety vistaril EKG was repeated showed Atrial trigeminy, ASMI, age unknonw, STTW changes, Cardiology consult appreciated Echocardiogram appreciated TSH, free T4 Medical consult will be considered SW consultation for discharge plan and social issues Family involvement Follow up on labs Will monitor closely Pt was educated about risk/benefits and alternatives of medications, coping strategies (safety plan, suicide prevention), relapse prevention, importance of follow up with psychiatrist and therapist, stay away from drugs/alcohol/smokingprescriptions Family Contact Family involvement: Family/SO is involved Family contact: Patient agrees to contact - Outside Agency [facility] Care involvment: Following patient during stay, Information-sharing Agency contact name: [facility] contact number: [phone] - Goals for Treatment Patient goals for treatment: Feel functional and not waking up feeling like that. Discharge/Continuing Care - Education Needs Education Needs: Patient Medication, Patient Diagnosis/Disease Process, Patient Coping Skills, Patient Anger Management skills, Patient Placement options, Patient Community resources, Patient Activities of Daily Living, Patient Pain, Patient Nutrition, Patient Uses of Medical Equipment, Patient Health Practices/Safety, Patient Personal Hygiene/Grooming, Patient Aftercare Safety Plan - Discharge Discharge Criteria: Tolerates medication w/o severe side effects, Normal sleep pattern - Treatment Team Participation Patient/Family/SO Statement: milieu/structure and supportive therapy Treatment plan was discussed in details medications for dyslipidemia as well as diabetes resumed Seroquel 75 mg at the nighttime for mood stabilization gedodon ddiscontinued Xanax 1 mg 3 times a day for anxiety paxil hs for depression and anxiety vistaril EKG was repeated showed Atrial trigeminy, ASMI, age unknonw, STTW changes, Cardiology consult appreciated Echocardiogram appreciated TSH, free T4 Medical consult will be considered SW consultation for discharge plan and social issues Family involvement Follow up on labs Will monitor closely Pt was educated about risk/benefits and alternatives of medications, coping strategies (safety plan, suicide prevention), relapse prevention, importance of follow up with psychiatrist and therapist, stay away from drugs/alcohol/smokingprescriptions Treatment Plan Review - Problem Panic Attacks Time Initiated: 10:00 Fear Time Initiated: 10:00 Anxiety Time Initiated: 10:00 Hopelessness/Helplessness Time Initiated: 10:00 Feelings of Worthlessness Time Initiated: 10:00 Ineffective Coping Time Initiated: 10:00 Altered Sleep Patterns Time Initiated: 10:00 <Gregoria Arboleda - Last Filed: 03/11/18 17:08> - Diagnosis (1) Mood disorder due to known physiological condition, unspecified Status: Acute Interventions: 03/11/18 17:08 pt said he is not improving tx plan was discussed pt is manipulative
--- NOTE | 2018-03-11 17:16 | PCM.PYCHPN ---
Psychiatric Progress Note - Psychiatric Progress Note Patient seen today, length of contact: 30min Patient Chief Complaint: "I was on Lamictal, Depakote, Remeron, Saphris' Problems Identified/Issues Discussed: Suicide/ homicide prevention, past psychiatric h/o, current psychiatric symptoms, medical problems, risk/benefits and alternatives of medications, medications compliance, coping strategies, substance abuse h/o, relapse prevention, importance of follow up with psychiatrist and therapist, discharge plan. Medical Problems: pt c/o diarrhea med consult called cardiology consult appreciated pt will be seen by thoracic surgeon Diagnostic Results: 03/04/18 07:30 Lab Results 03/04/18 15:51: POC Glucose (mg/dL) 114 H 03/04/18 07:30: TSH 3rd Generation 1.49 03/04/18 07:30: Sodium 141, Potassium 4.2, Chloride 102, Carbon Dioxide 33, Anion Gap 11, BUN 11, Creatinine 1.0, Est GFR ( Amer) > 60, Est GFR (Non-Af Amer) > 60, Random Glucose 133 H, Fasting Glucose 133 H, Calcium 9.4, Total Bilirubin 0.7, AST 13 L, ALT 32, Alkaline Phosphatase 62, Total Protein 6.3, Albumin 3.9, Globulin 2.4, Albumin/Globulin Ratio 1.6, Triglycerides 137, Cholesterol 137, LDL Cholesterol Direct 77, HDL Cholesterol 35 Vital Signs Temp Pulse Pulse Resp BP Pulse Ox 03/04/18 16:00 68 121/84 03/04/18 07:02 97.3 F L 65 20 104/69 03/03/18 16:14 68 119/70 03/03/18 16:00 68 119/70 03/03/18 11:00 65 15 03/03/18 08:30 97.9 F 65 15 120/85 03/03/18 08:29 97.9 F 62 17 127/85 96 03/06/18 03/06/18 03/06/18 11:45 11:45 11:45 WBC RBC Hgb Hct MCV MCH MCHC RDW Plt Count MPV D-Dimer, Quantitative < 200 Sodium Potassium Chloride Carbon Dioxide Anion Gap BUN Creatinine Est GFR ( Amer) Est GFR (Non-Af Amer) POC Glucose (mg/dL) Random Glucose Fasting Glucose Hemoglobin A1c Calcium Total Bilirubin AST ALT Alkaline Phosphatase Troponin I < 0.01 Total Protein Albumin Globulin Albumin/Globulin Ratio Triglycerides Cholesterol LDL Cholesterol Direct HDL Cholesterol TSH 3rd Generation 1.03 RPR 03/06/18 03/06/18 03/06/18 11:45 11:29 07:40 WBC 6.6 RBC 5.34 Hgb 15.6 Hct 44.2 MCV 82.8 MCH 29.2 MCHC 35.3 RDW 13.0 Plt Count 142 MPV 9.9 D-Dimer, Quantitative Sodium Potassium Chloride Carbon Dioxide Anion Gap BUN Creatinine Est GFR ( Amer) Est GFR (Non-Af Amer) POC Glucose (mg/dL) 174 H 76 Random Glucose Fasting Glucose Hemoglobin A1c Calcium Total Bilirubin AST ALT Alkaline Phosphatase Troponin I Total Protein Albumin Globulin Albumin/Globulin Ratio Triglycerides Cholesterol LDL Cholesterol Direct HDL Cholesterol TSH 3rd Generation RPR 03/05/18 03/05/18 03/05/18 20:17 20:00 16:23 WBC RBC Hgb Hct MCV MCH MCHC RDW Plt Count MPV D-Dimer, Quantitative Sodium Potassium Chloride Carbon Dioxide Anion Gap BUN Creatinine Est GFR ( Amer) Est GFR (Non-Af Amer) POC Glucose (mg/dL) 246 H 184 H Random Glucose Fasting Glucose Hemoglobin A1c Calcium Total Bilirubin AST ALT Alkaline Phosphatase Troponin I < 0.01 Total Protein Albumin Globulin Albumin/Globulin Ratio Triglycerides Cholesterol LDL Cholesterol Direct HDL Cholesterol TSH 3rd Generation RPR 03/05/18 03/05/18 03/05/18 11:01 07:43 07:30 WBC RBC Hgb Hct MCV MCH MCHC RDW Plt Count MPV D-Dimer, Quantitative Sodium 141 Potassium 4.3 Chloride 101 Carbon Dioxide 31 Anion Gap 13 BUN 13 Creatinine 0.9 Est GFR ( Amer) > 60 Est GFR (Non-Af Amer) > 60 POC Glucose (mg/dL) 145 H Random Glucose 119 H Fasting Glucose Hemoglobin A1c 6.8 H Calcium 9.4 Total Bilirubin AST ALT Alkaline Phosphatase Troponin I Total Protein Albumin Globulin Albumin/Globulin Ratio Triglycerides Cholesterol LDL Cholesterol Direct HDL Cholesterol TSH 3rd Generation RPR 03/05/18 03/04/18 03/04/18 07:16 21:03 15:51 WBC RBC Hgb Hct MCV MCH MCHC RDW Plt Count MPV D-Dimer, Quantitative Sodium Potassium Chloride Carbon Dioxide Anion Gap BUN Creatinine Est GFR ( Amer) Est GFR (Non-Af Amer) POC Glucose (mg/dL) 122 H 209 H 114 H Random Glucose Fasting Glucose Hemoglobin A1c Calcium Total Bilirubin AST ALT Alkaline Phosphatase Troponin I Total Protein Albumin Globulin Albumin/Globulin Ratio Triglycerides Cholesterol LDL Cholesterol Direct HDL Cholesterol TSH 3rd Generation RPR 03/04/18 03/04/18 03/04/18 07:30 07:30 07:30 WBC RBC Hgb Hct MCV MCH MCHC RDW Plt Count MPV D-Dimer, Quantitative Sodium 141 Potassium 4.2 Chloride 102 Carbon Dioxide 33 Anion Gap 11 BUN 11 Creatinine 1.0 Est GFR ( Amer) > 60 Est GFR (Non-Af Amer) > 60 POC Glucose (mg/dL) Random Glucose 133 H Fasting Glucose 133 H Hemoglobin A1c Calcium 9.4 Total Bilirubin 0.7 AST 13 L ALT 32 Alkaline Phosphatase 62 Troponin I Total Protein 6.3 Albumin 3.9 Globulin 2.4 Albumin/Globulin Ratio 1.6 Triglycerides 137 Cholesterol 137 LDL Cholesterol Direct 77 HDL Cholesterol 35 TSH 3rd Generation 1.49 RPR Nonreactive Temp Pulse Resp BP Pulse Ox 97.7 F 83 20 123/85 96 03/06/18 07:00 03/06/18 15:55 03/06/18 07:00 03/06/18 15:55 03/03/18 08:[address] of the chest bicuspid aortic valve with aortic root dilation to 4.0x4.3cm DSM 5 Symptoms Update: shortly patient is 42-year-old male, self reported history of depress ion and anxiety, multiple admissions to the psychiatric inpatient unit, including [facility] for one year, recently discharged from [facility] 2 weeks ago, [facility] [place], patient has intensive case management as well as [facility] staff treatment team, pt denied history of suicidal attempts, one day ago patient tried to cut his forearm (no sutures, very superficial), patient came to [facility] looking for help for his depressive symptoms, anxiety "30/12" inability to function, patient was accepted by nurse practitioner overnight, patient requires further evaluation and stabilization, medication adjustment. patient was seen at the tx team meeting. pt is bombarding tx team with new symptoms each day. pt was advised to come up with meds which helped him in the past pt said he was on Lamictal, Depakote, Remeron, Saphris. pt was educated that only two meds will be chosen for him and will adjust doses accordingly, pt was in agreement with that plan. pt did not want to be on depakote, saphris is not available in the hospital, only three meds could be given such as Seroquel/remeron/xanax for anxiety. pt presented well, but dramatic and exaggerating his symptoms. pt attends groups, no agitation or aggression. discussed with Cardiology team today , and yesterday, plan to monitor every 6months,pt is aware of this plan, pt was able to discussed in details what was the plan from the cardiology team.. collaterals from [facility], see notes for more detailed info. so far patient tolerates medications well, aims 0, no EPS. Impression: DSM 5 Diagnosis: mood disorder NOS r/o mdd r/o severe borderline personality disorder r/o venkata Medication Change: Yes (Remeron started Paxil was discontinued) Medical Record Reviewed: Yes Mental Status Examination - Cognitive Function Orientation: Person, Place, Situation, Time Memory: Intact Attention: Poor (good) Concentration: Poor (good) Association: WNL Fund of Knowledge: WNL - Mood Mood: Depressed ("I am very anxious"), Anxious - Affect Affect: Constricted (but reactive), Other (anxious and labile this morning) - Formal Thought Process Formal Thought Process: No Impairment - Suicidal Ideation Suicidal Ideation: No - Homicidal Ideation Homicidal Ideation: No Goal/Treatment Plan - Goal/Treatment Plan Need for Continued Stay: Remain at risks for inpatient hospitalization, Severe depression anxiety, Discharge may exacerbated symptoms, Failed transitioning, Severe functional impairment Progress Toward Problem(s) and Goals/Treatment Plan: milieu/structure and supportive therapy Treatment plan was discussed in details medications for dyslipidemia as well as diabetes resumed Seroquel 75 mg at the nighttime for mood stabilization gedodon ddiscontinued Xanax 1 mg 3 times a day for anxiety paxil d/c remeron 15mg po hs for depression vistaril EKG was repeated showed Atrial trigeminy, ASMI, age unknonw, STTW changes, Cardiology consult appreciated Echocardiogram appreciated TSH, free T4 Medical consult will be considered consultation for discharge plan and social issues Family involvement Follow up on labs Will monitor closely Pt was educated about risk/benefits and alternatives of medications, coping strategies (safety plan, suicide prevention), relapse prevention, importance of follow up with psychiatrist and therapist, stay away from drugs/alcohol/smokingprescriptions Estimated Date of D/C: 03/13/18
[2018-03-11] MEDS: Insulin Detemir 100 units/ml Vial (Levemir) SC SCH (22:42)
[2018-03-12] MEDS: Insulin Reg-LOW-Coverage SC SCH ×4 (08:36→22:21)
[2018-03-12] MEDS: Cholecalciferol 1,000 INTLU TAB PO SCH (08:39)
--- NOTE | 2018-03-12 16:30 | PCM.PYCHPN ---
Psychiatric Progress Note - Psychiatric Progress Note Patient seen today, length of contact: 30min Patient Chief Complaint: "I slept well, thank you for taking care of me" Problems Identified/Issues Discussed: Suicide/ homicide prevention, past psychiatric h/o, current psychiatric symptoms, medical problems, risk/benefits and alternatives of medications, medications compliance, coping strategies, substance abuse h/o, relapse prevention, importance of follow up with psychiatrist and therapist, discharge plan. Medical Problems: pt c/o diarrhea med consult called cardiology consult appreciated pt will be seen by thoracic surgeon Diagnostic Results: 03/04/18 07:30 Lab Results 03/04/18 15:51: POC Glucose (mg/dL) 114 H 03/04/18 07:30: TSH 3rd Generation 1.49 03/04/18 07:30: Sodium 141, Potassium 4.2, Chloride 102, Carbon Dioxide 33, Anion Gap 11, BUN 11, Creatinine 1.0, Est GFR ( Amer) > 60, Est GFR (Non-Af Amer) > 60, Random Glucose 133 H, Fasting Glucose 133 H, Calcium 9.4, Total Bilirubin 0.7, AST 13 L, ALT 32, Alkaline Phosphatase 62, Total Protein 6.3, Albumin 3.9, Globulin 2.4, Albumin/Globulin Ratio 1.6, Triglycerides 137, Cholesterol 137, LDL Cholesterol Direct 77, HDL Cholesterol 35 Vital Signs Temp Pulse Pulse Resp BP Pulse Ox 03/04/18 16:00 68 121/84 03/04/18 07:02 97.3 F L 65 20 104/69 03/03/18 16:14 68 119/70 03/03/18 16:00 68 119/70 03/03/18 11:00 65 15 03/03/18 08:30 97.9 F 65 15 120/85 03/03/18 08:29 97.9 F 62 17 127/85 96 03/06/18 03/06/18 03/06/18 11:45 11:45 11:45 WBC RBC Hgb Hct MCV MCH MCHC RDW Plt Count MPV D-Dimer, Quantitative < 200 Sodium Potassium Chloride Carbon Dioxide Anion Gap BUN Creatinine Est GFR ( Amer) Est GFR (Non-Af Amer) POC Glucose (mg/dL) Random Glucose Fasting Glucose Hemoglobin A1c Calcium Total Bilirubin AST ALT Alkaline Phosphatase Troponin I < 0.01 Total Protein Albumin Globulin Albumin/Globulin Ratio Triglycerides Cholesterol LDL Cholesterol Direct HDL Cholesterol TSH 3rd Generation 1.03 RPR 03/06/18 03/06/18 03/06/18 11:45 11:29 07:40 WBC 6.6 RBC 5.34 Hgb 15.6 Hct 44.2 MCV 82.8 MCH 29.2 MCHC 35.3 RDW 13.0 Plt Count 142 MPV 9.9 D-Dimer, Quantitative Sodium Potassium Chloride Carbon Dioxide Anion Gap BUN Creatinine Est GFR ( Amer) Est GFR (Non-Af Amer) POC Glucose (mg/dL) 174 H 76 Random Glucose Fasting Glucose Hemoglobin A1c Calcium Total Bilirubin AST ALT Alkaline Phosphatase Troponin I Total Protein Albumin Globulin Albumin/Globulin Ratio Triglycerides Cholesterol LDL Cholesterol Direct HDL Cholesterol TSH 3rd Generation RPR 03/05/18 03/05/18 03/05/18 20:17 20:00 16:23 WBC RBC Hgb Hct MCV MCH MCHC RDW Plt Count MPV D-Dimer, Quantitative Sodium Potassium Chloride Carbon Dioxide Anion Gap BUN Creatinine Est GFR ( Amer) Est GFR (Non-Af Amer) POC Glucose (mg/dL) 246 H 184 H Random Glucose Fasting Glucose Hemoglobin A1c Calcium Total Bilirubin AST ALT Alkaline Phosphatase Troponin I < 0.01 Total Protein Albumin Globulin Albumin/Globulin Ratio Triglycerides Cholesterol LDL Cholesterol Direct HDL Cholesterol TSH 3rd Generation RPR 03/05/18 03/05/18 03/05/18 11:01 07:43 07:30 WBC RBC Hgb Hct MCV MCH MCHC RDW Plt Count MPV D-Dimer, Quantitative Sodium 141 Potassium 4.3 Chloride 101 Carbon Dioxide 31 Anion Gap 13 BUN 13 Creatinine 0.9 Est GFR ( Amer) > 60 Est GFR (Non-Af Amer) > 60 POC Glucose (mg/dL) 145 H Random Glucose 119 H Fasting Glucose Hemoglobin A1c 6.8 H Calcium 9.4 Total Bilirubin AST ALT Alkaline Phosphatase Troponin I Total Protein Albumin Globulin Albumin/Globulin Ratio Triglycerides Cholesterol LDL Cholesterol Direct HDL Cholesterol TSH 3rd Generation RPR 03/05/18 03/04/18 03/04/18 07:16 21:03 15:51 WBC RBC Hgb Hct MCV MCH MCHC RDW Plt Count MPV D-Dimer, Quantitative Sodium Potassium Chloride Carbon Dioxide Anion Gap BUN Creatinine Est GFR ( Amer) Est GFR (Non-Af Amer) POC Glucose (mg/dL) 122 H 209 H 114 H Random Glucose Fasting Glucose Hemoglobin A1c Calcium Total Bilirubin AST ALT Alkaline Phosphatase Troponin I Total Protein Albumin Globulin Albumin/Globulin Ratio Triglycerides Cholesterol LDL Cholesterol Direct HDL Cholesterol TSH 3rd Generation RPR 03/04/18 03/04/18 03/04/18 07:30 07:30 07:30 WBC RBC Hgb Hct MCV MCH MCHC RDW Plt Count MPV D-Dimer, Quantitative Sodium 141 Potassium 4.2 Chloride 102 Carbon Dioxide 33 Anion Gap 11 BUN 11 Creatinine 1.0 Est GFR ( Amer) > 60 Est GFR (Non-Af Amer) > 60 POC Glucose (mg/dL) Random Glucose 133 H Fasting Glucose 133 H Hemoglobin A1c Calcium 9.4 Total Bilirubin 0.7 AST 13 L ALT 32 Alkaline Phosphatase 62 Troponin I Total Protein 6.3 Albumin 3.9 Globulin 2.4 Albumin/Globulin Ratio 1.6 Triglycerides 137 Cholesterol 137 LDL Cholesterol Direct 77 HDL Cholesterol 35 TSH 3rd Generation 1.49 RPR Nonreactive Temp Pulse Resp BP Pulse Ox 97.7 F 83 20 123/85 96 03/06/18 07:00 03/06/18 15:55 03/06/18 07:00 03/06/18 15:55 03/03/18 08:[address] of the chest bicuspid aortic valve with aortic root dilation to 4.0x4.3cm DSM 5 Symptoms Update: shortly patient is 42-year-old male, self reported history of depressi on and anxiety, multiple admissions to the psychiatric inpatient unit, including [facility] for one year, recently discharged from [facility] weeks ago, [facility] [place], patient has intensive case management as well as nursing staff treatment team, pt denied history of suicidal attempts, one day ago patient tried to cut his forearm (no sutures, very superficial), patient came to [facility] looking for help for his depressive symptoms, anxiety "30/12" inability to function, patient was accepted by nurse practitioner overnight, patient requires further evaluation and stabilization, medication adjustment. patient was seen n the day treatment area, patient presented well, shaved, hygiene is improving, patient reported that she slept better, patient reported that he thought about his medications and he is willing to take Lamictal, Remeron, Seroquel as of now, this rewriter finalize the plan, patient was in agreement to continue these medications. pt presented well, but dramatic and exaggerating his symptoms. pt attends groups, no agitation or aggression. discussed with Cardiology team today , and yesterday, plan to monitor every 6months,pt is aware of this plan, pt was able to discussed in details what was the plan from the cardiology team.. collaterals from Biomedical Service Engineer at [facility], see notes for more detailed info. so far patient tolerates medications well, aims 0, no EPS. Impression: DSM 5 Diagnosis: mood disorder NOS r/o mdd r/o severe borderline personality disorder r/o venkata Medication Change: Yes (Remeron/Lamictal/Seroquel) Medical Record Reviewed: Yes Mental Status Examination - Cognitive Function Orientation: Person, Place, Situation, Time Memory: Intact Attention: Poor (good) Concentration: Poor (good) Association: WNL Fund of Knowledge: WNL - Mood Mood: Depressed ("I am very anxious"), Anxious - Affect Affect: Constricted (but reactive), Other (anxious and labile this morning) - Formal Thought Process Formal Thought Process: No Impairment - Suicidal Ideation Suicidal Ideation: No - Homicidal Ideation Homicidal Ideation: No Goal/Treatment Plan - Goal/Treatment Plan Need for Continued Stay: Remain at risks for inpatient hospitalization, Severe depression anxiety, Discharge may exacerbated symptoms, Failed transitioning, Severe functional impairment Progress Toward Problem(s) and Goals/Treatment Plan: milieu/structure and supportive therapy Treatment plan was discussed in details medications for dyslipidemia as well as diabetes resumed Seroquel 75 mg at the nighttime for mood stabilization Xanax 1 mg 3 times a day for anxiety remeron 15mg po hs for depression lamictal 25 mg daily for mood stabilization EKG was repeated showed Atrial trigeminy, ASMI, age unknonw, STTW changes, Cardiology consult appreciated Echocardiogram appreciated TSH, free T4 Medical consult will be considered consultation for discharge plan and social issues Family involvement Follow up on labs Will monitor closely Pt was educated about risk/benefits and alternatives of medications, coping strategies (safety plan, suicide prevention), relapse prevention, importance of follow up with psychiatrist and therapist, stay away from drugs/alcohol/smokingprescriptions Estimated Date of D/C: 03/17/18
[2018-03-12] MEDS: Insulin Detemir 100 units/ml Vial (Levemir) SC SCH (22:28)
[2018-03-13] MEDS: Insulin Reg-LOW-Coverage SC SCH ×4 (08:06→23:30)
[2018-03-13] MEDS: Cholecalciferol 1,000 INTLU TAB PO SCH (08:13)
--- NOTE | 2018-03-13 15:26 | PCM.PYCHPN ---
Psychiatric Progress Note - Psychiatric Progress Note Patient seen today, length of contact: 30min Patient Chief Complaint: "I feel anxious, anxiety out of control" Problems Identified/Issues Discussed: Suicide/ homicide prevention, past psychiatric h/o, current psychiatric symptoms, medical problems, risk/benefits and alternatives of medications, medications compliance, coping strategies, substance abuse h/o, relapse prevention, importance of follow up with psychiatrist and therapist, discharge plan. Medical Problems: pt c/o diarrhea med consult called cardiology consult appreciated pt will be seen by thoracic surgeon Diagnostic Results: 03/04/18 07:30 Lab Results 03/04/18 15:51: POC Glucose (mg/dL) 114 H 03/04/18 07:30: TSH 3rd Generation 1.49 03/04/18 07:30: Sodium 141, Potassium 4.2, Chloride 102, Carbon Dioxide 33, Anion Gap 11, BUN 11, Creatinine 1.0, Est GFR ( Amer) > 60, Est GFR (Non- Af Amer) > 60, Random Glucose 133 H, Fasting Glucose 133 H, Calcium 9.4, Total Bilirubin 0.7, AST 13 L, ALT 32, Alkaline Phosphatase 62, Total Protein 6.3, Albumin 3.9, Globulin 2.4, Albumin/Globulin Ratio 1.6, Triglycerides 137, Cho lesterol 137, LDL Cholesterol Direct 77, HDL Cholesterol 35 Vital Signs Temp Pulse Pulse Resp BP Pulse Ox 03/04/18 16:00 68 121/84 03/04/18 07:02 97.3 F L 65 20 104/69 03/03/18 16:14 68 119/70 03/03/18 16:00 68 119/70 03/03/18 11:00 65 15 03/03/18 08:30 97.9 F 65 15 120/85 03/03/18 08:29 97.9 F 62 17 127/85 96 03/06/18 03/06/18 03/06/18 11:45 11:45 11:45 WBC RBC Hgb Hct MCV MCH MCHC RDW Plt Count MPV D-Dimer, Quantitative < 200 Sodium Potassium Chloride Carbon Dioxide Anion Gap BUN Creatinine Est GFR ( Amer) Est GFR (Non-Af Amer) POC Glucose (mg/dL) Random Glucose Fasting Glucose Hemoglobin A1c Calcium Total Bilirubin AST ALT Alkaline Phosphatase Troponin I < 0.01 Total Protein Albumin Globulin Albumin/Globulin Ratio Triglycerides Cholesterol LDL Cholesterol Direct HDL Cholesterol TSH 3rd Generation 1.03 RPR 03/06/18 03/06/18 03/06/18 11:45 11:29 07:40 WBC 6.6 RBC 5.34 Hgb 15.6 Hct 44.2 MCV 82.8 MCH 29.2 MCHC 35.3 RDW 13.0 Plt Count 142 MPV 9.9 D-Dimer, Quantitative Sodium Potassium Chloride Carbon Dioxide Anion Gap BUN Creatinine Est GFR ( Amer) Est GFR (Non-Af Amer) POC Glucose (mg/dL) 174 H 76 Random Glucose Fasting Glucose Hemoglobin A1c Calcium Total Bilirubin AST ALT Alkaline Phosphatase Troponin I Total Protein Albumin Globulin Albumin/Globulin Ratio Triglycerides Cholesterol LDL Cholesterol Direct HDL Cholesterol TSH 3rd Generation RPR 03/05/18 03/05/18 03/05/18 20:17 20:00 16:23 WBC RBC Hgb Hct MCV MCH MCHC RDW Plt Count MPV D-Dimer, Quantitative Sodium Potassium Chloride Carbon Dioxide Anion Gap BUN Creatinine Est GFR ( Amer) Est GFR (Non-Af Amer) POC Glucose (mg/dL) 246 H 184 H Random Glucose Fasting Glucose Hemoglobin A1c Calcium Total Bilirubin AST ALT Alkaline Phosphatase Troponin I < 0.01 Total Protein Albumin Globulin Albumin/Globulin Ratio Triglycerides Cholesterol LDL Cholesterol Direct HDL Cholesterol TSH 3rd Generation RPR 03/05/18 03/05/18 03/05/18 11:01 07:43 07:30 WBC RBC Hgb Hct MCV MCH MCHC RDW Plt Count MPV D-Dimer, Quantitative Sodium 141 Potassium 4.3 Chloride 101 Carbon Dioxide 31 Anion Gap 13 BUN 13 Creatinine 0.9 Est GFR ( Amer) > 60 Est GFR (Non-Af Amer) > 60 POC Glucose (mg/dL) 145 H Random Glucose 119 H Fasting Glucose Hemoglobin A1c 6.8 H Calcium 9.4 Total Bilirubin AST ALT Alkaline Phosphatase Troponin I Total Protein Albumin Globulin Albumin/Globulin Ratio Triglycerides Cholesterol LDL Cholesterol Direct HDL Cholesterol TSH 3rd Generation RPR 03/05/18 03/04/18 03/04/18 07:16 21:03 15:51 WBC RBC Hgb Hct MCV MCH MCHC RDW Plt Count MPV D-Dimer, Quantitative Sodium Potassium Chloride Carbon Dioxide Anion Gap BUN Creatinine Est GFR ( Amer) Est GFR (Non-Af Amer) POC Glucose (mg/dL) 122 H 209 H 114 H Random Glucose Fasting Glucose Hemoglobin A1c Calcium Total Bilirubin AST ALT Alkaline Phosphatase Troponin I Total Protein Albumin Globulin Albumin/Globulin Ratio Triglycerides Cholesterol LDL Cholesterol Direct HDL Cholesterol TSH 3rd Generation RPR 03/04/18 03/04/18 03/04/18 07:30 07:30 07:30 WBC RBC Hgb Hct MCV MCH MCHC RDW Plt Count MPV D-Dimer, Quantitative Sodium 141 Potassium 4.2 Chloride 102 Carbon Dioxide 33 Anion Gap 11 BUN 11 Creatinine 1.0 Est GFR ( Amer) > 60 Est GFR (Non-Af Amer) > 60 POC Glucose (mg/dL) Random Glucose 133 H Fasting Glucose 133 H Hemoglobin A1c Calcium 9.4 Total Bilirubin 0.7 AST 13 L ALT 32 Alkaline Phosphatase 62 Troponin I Total Protein 6.3 Albumin 3.9 Globulin 2.4 Albumin/Globulin Ratio 1.6 Triglycerides 137 Cholesterol 137 LDL Cholesterol Direct 77 HDL Cholesterol 35 TSH 3rd Generation 1.49 RPR Nonreactive Temp Pulse Resp BP Pulse Ox 97.7 F 83 20 123/85 96 03/06/18 07:00 03/06/18 15:55 03/06/18 07:00 03/06/18 15:55 03/03/18 08:[address] of the chest bicuspid aortic valve with aortic root dilation to 4.0x4.3cm DSM 5 Symptoms Update: shortly patient is 42-year-old male, self reported history of depression and anxiety, multiple admissions to the psychiatric inpatient unit, including [facility] for one year, recently discharged from [facility] 2 weeks ago, [facility] [place], patient has intensive case management as well as nursing staff treatment team, pt denied history of suicidal attempts, one day ago patient tried to cut his forearm (no sutures, very superficial), patient came to [facility] looking for help for his depressive symptoms, anxiety "30/12" inability to function, patient was accepted by nurse practitioner overnight, patient requires further evaluation and stabilization, medication adjustment. patient was seen next to the nursing station, patient presented well, shaved, hygiene is improving, patient reported that she slept better, patient reported that his depression is better, but anxiety is "out of control", patient requested lab next to be changed to Klonopin, will do so, at the same time p atient has tendency of requesting changing his medications, not allowing to increase the doses, patient passive aggressive, he will bring a lot of complaints but when this telegraphic typewriter mechanic trying to address all complains patient is rejecting any help. pt also is asking to initiate some meds, but refusing to t shari them. as of now med list finalized and patient agreed to be on the following meds: Lamictal, Remeron, Seroquel, Klonopin. this telegraphic typewriter mechanic strongly believe that pt does not want to be discharge, will blame med side effects, saying that he is not improving. as of now pt needs to be continued on the above meds, no change meds recommended unless severe side effects. pt attends groups, no agitation or aggression. discussed with Cardiology team today , and yesterday, plan to monitor every 6months,pt is aware of this plan, pt was able to discussed in details what was the plan from the cardiology team.. collaterals from Finished Hardware Erector at [facility], see SW notes for more detailed info. so far patient tolerates medications well, aims 0, no EPS. Impression: DSM 5 Diagnosis: mood disorder NOS r/o mdd r/o severe borderline personality disorder r/o venkata Medication Change: Yes (Remeron/Lamictal/Seroquel/klonopin) Medical Record Reviewed: Yes Consults ordered or reviewed: med consult called, ppreciated Cardiology consultation appreciated Mental Status Examination - Cognitive Function Orientation: Person, Place, Situation, Time Memory: Intact Attention: Poor (good) Concentration: Poor (good) Association: WNL Fund of Knowledge: WNL - Mood Mood: Depressed ("I am not depressed, I feel good, but anxious"), Anxious - Affect Affect: Constricted (but reactive), Other (anxious and labile this morning) - Formal Thought Process Formal Thought Process: No Impairment - Suicidal Ideation Suicidal Ideation: No - Homicidal Ideation Homicidal Ideation: No Goal/Treatment Plan - Goal/Treatment Plan Need for Continued Stay: Remain at risks for inpatient hospitalization, Severe depression anxiety, Discharge may exacerbated symptoms, Failed transitioning, Severe functional impairment Progress Toward Problem(s) and Goals/Treatment Plan: milieu/structure and supportive therapy Treatment plan was discussed in details medications for dyslipidemia as well as diabetes resumed Seroquel 75 mg at the nighttime for mood stabilization klonopin 1 mg 3 times a day for anxiety remeron 15mg po hs for depression lamictal 25 mg daily for mood stabilization started 03/11/18 EKG was repeated showed Atrial trigeminy, ASMI, age unknonw, STTW changes, Cardiology consult appreciated Echocardiogram appreciated TSH, free T4 Medical consult will be considered SW consultation for discharge plan and social issues Family involvement Follow up on labs Will monitor closely /Pt was educated about risk/benefits and alternatives of medications, coping strategies (safety plan, suicide prevention), relapse prevention, importance of follow up with psychiatrist and therapist, stay away from drugs/a lcohol/smokingprescriptions Estimated Date of D/C: 03/17/18
--- NOTE | 2018-03-13 18:47 | PCM.BM ---
<Wandy Matute - Last Filed: 03/13/18 18:44> Treatment Plan Problems - Problems identified on initial assessmt Panic Attacks Date Initiated: 03/03/18 (03/11 CONTINUE TO VERBALIED OF FEELING ANXIOUS,BUT ABLE TO ENGAGE WITH OTHER PEERS) Time Initiated: 10:00 Assessment reference: NA Status: Active Priority: 1 Fear Date Initiated: 03/03/18 (03/11 VERBALIZED HE FEELS NOT READY TO GO HOME) Time Initiated: 10:00 Assessment reference: NA Status: Active Priority: 2 Anxiety Date Initiated: 03/03/18 Time Initiated: 10:00 Assessment reference: NA Status: Active Priority: 3 Hopelessness/Helplessness Date Initiated: 03/03/18 (03/11 VERBALIZED OF FEELING HELPLESS WHEN HE GOES HOME) Time Initiated: 10:00 Assessment reference: NA Status: Active Priority: 4 Feelings of Worthlessness Date Initiated: 03/03/18 (03/11 VERBALIZED OF FEAR OF BEIN HOME) Time Initiated: 10:00 Assessment reference: NA Status: Active Priority: 5 Ineffective Coping Date Initiated: 03/03/18 (03/11 DEPENDENT PERSONLITY EXIST,NOT WILLING TO BE D/C) Time Initiated: 10:00 Assessment reference: NA Status: Active Priority: 6 Altered Sleep Patterns Date Initiated: 03/03/18 (03/11 UNRELENTLESS SOMATIC COMPLAINTS REMAIN) Time Initiated: 10:00 Assessment reference: NA Status: Active Priority: 7 Treatment assets and liabiliti Patient Assests: adapts well, cooperative, insightful, self-reliant, ADL independent, negotiates basic needs, cognitively intact, good interpersonal skills Patient Liabilities: live alone, financial problems, medical problems - Milieu Protocol Maintain good personal hygiene: daily Encourage regular showers, every shift Remind patient to perform daily oral care, every shift Assist patient to perform ADL's Maintain personal safety: every shift Educate patient to report safety concerns to staff, every shift Monitor environment for contraband/sharps Medication safety: Monitor for expected outcome, potential side effects: every shift, Assess barriers to learning: every shift, Assess readiness for medication education: every shift Milieu Narrative: milieu/structure and supportive therapy Treatment plan was discussed in details medications for dyslipidemia as well as diabetes resumed Seroquel 75 mg at the nighttime for mood stabilization klonopin 1 mg 3 times a day for anxiety remeron 15mg po hs for depression lamictal 25 mg daily for mood stabilization started 03/11/18 EKG was repeated showed Atrial trigeminy, ASMI, age unknonw, STTW changes, Cardiology consult appreciated Echocardiogram appreciated TSH, free T4 Medical consult will be considered consultation for discharge plan and social issues Family involvement Follow up on labs Will monitor closely /Pt was educated about risk/benefits and alternatives of medications, coping strategies (safety plan, suicide prevention), relapse prevention, importance of follow up with psychiatrist and therapist, stay away from drugs/alcohol/smokingprescriptions Family Contact Family involvement: Family/SO is involved Family contact: Patient agrees to contact - Outside Agency [facility] Care involvment: Following patient during stay, Information-sharing Agency contact name: [facility] contact number: [phone] - Goals for Treatment Patient goals for treatment: Feel functional and not waking up feeling like that. Discharge/Continuing Care - Education Needs Education Needs: Patient Medication, Patient Diagnosis/Disease Process, Patient Coping Skills, Patient Anger Management skills, Patient Placement options, Patient Community resources, Patient Activities of Daily Living, Patient Pain, Patient Nutrition, Patient Uses of Medical Equipment, Patient Health Practices/Safety, Patient Personal Hygiene/Grooming, Patient Aftercare Safety Plan - Discharge Discharge Criteria: Tolerates medication w/o severe side effects, Normal sleep pattern - Treatment Team Participation Patient/Family/SO Statement: milieu/structure and supportive therapy Treatment plan was discussed in details medications for dyslipidemia as well as diabetes resumed Seroquel 75 mg at the nighttime for mood stabilization klonopin 1 mg 3 times a day for anxiety remeron 15mg po hs for depression lamictal 25 mg daily for mood stabilization started 03/11/18 EKG was repeated showed Atrial trigeminy, ASMI, age unknonw, STTW changes, Cardiology consult appreciated Echocardiogram appreciated TSH, free T4 Medical consult will be considered consultation for discharge plan and social issues Family involvement Follow up on labs Will monitor closely /Pt was educated about risk/benefits and alternatives of medications, coping strategies (safety plan, suicide prevention), relapse prevention, importance of follow up with psychiatrist and therapist, stay away from drugs/alcohol/smokingprescriptions Treatment Plan Review - Problem Panic Attacks Time Initiated: 10:00 Fear Time Initiated: 10:00 Anxiety Time Initiated: 10:00 Hopelessness/Helplessness Time Initiated: 10:00 Feelings of Worthlessness Time Initiated: 10:00 Ineffective Coping Time Initiated: 10:00 Altered Sleep Patterns Time Initiated: 10:00 <Gregoria Arboleda - Last Filed: 03/14/18 13:58> - Diagnosis (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
[2018-03-13] MEDS: Insulin Detemir 100 units/ml Vial (Levemir) SC SCH (21:17)
[2018-03-14] MEDS: Cholecalciferol 1,000 INTLU TAB PO SCH (08:57)
[2018-03-14] MEDS: Insulin Reg-LOW-Coverage SC SCH ×4 (08:58→21:26)
--- NOTE | 2018-03-14 14:02 | PCM.PYCHPN ---
Psychiatric Progress Note - Psychiatric Progress Note Patient seen today, length of contact: 30min Patient Chief Complaint: "I feel less anxious, may I be on Geodon?" Problems Identified/Issues Discussed: Suicide/ homicide prevention, past psychiatric h/o, current psychiatric symptoms, medical problems, risk/benefits and alternatives of medications, medications compliance, coping strategies, substance abuse h/o, relapse prevention, importance of follow up with psychiatrist and therapist, discharge plan. Medical Problems: pt c/o diarrhea med consult called cardiology consult appreciated pt will be seen by thoracic surgeon Diagnostic Results: 03/04/18 07:30 Lab Results 03/04/18 15:51: POC Glucose (mg/dL) 114 H 03/04/18 07:30: TSH 3rd Generation 1.49 03/04/18 07:30: Sodium 141, Potassium 4.2, Chloride 102, Carbon Dioxide 33, Anion Gap 11, BUN 11, Creatinine 1.0, Est GFR ( Amer) > 60, Est GFR (Non- Af Amer) > 60, Random Glucose 133 H, Fasting Glucose 133 H, Calcium 9.4, Total Bilirubin 0.7, AST 13 L, ALT 32, Alkaline Phosphatase 62, Total Protein 6.3, Albumin 3.9, Globulin 2.4, Albumin/Globulin Ratio 1.6, Triglycerides 137, C holesterol 137, LDL Cholesterol Direct 77, HDL Cholesterol 35 Vital Signs Temp Pulse Pulse Resp BP Pulse Ox 03/04/18 16:00 68 121/84 03/04/18 07:02 97.3 F L 65 20 104/69 03/03/18 16:14 68 119/70 03/03/18 16:00 68 119/70 03/03/18 11:00 65 15 03/03/18 08:30 97.9 F 65 15 120/85 03/03/18 08:29 97.9 F 62 17 127/85 96 03/06/18 03/06/18 03/06/18 11:45 11:45 11:45 WBC RBC Hgb Hct MCV MCH MCHC RDW Plt Count MPV D-Dimer, Quantitative < 200 Sodium Potassium Chloride Carbon Dioxide Anion Gap BUN Creatinine Est GFR ( Amer) Est GFR (Non-Af Amer) POC Glucose (mg/dL) Random Glucose Fasting Glucose Hemoglobin A1c Calcium Total Bilirubin AST ALT Alkaline Phosphatase Troponin I < 0.01 Total Protein Albumin Globulin Albumin/Globulin Ratio Triglycerides Cholesterol LDL Cholesterol Direct HDL Cholesterol TSH 3rd Generation 1.03 RPR 03/06/18 03/06/18 03/06/18 11:45 11:29 07:40 WBC 6.6 RBC 5.34 Hgb 15.6 Hct 44.2 MCV 82.8 MCH 29.2 MCHC 35.3 RDW 13.0 Plt Count 142 MPV 9.9 D-Dimer, Quantitative Sodium Potassium Chloride Carbon Dioxide Anion Gap BUN Creatinine Est GFR ( Amer) Est GFR (Non-Af Amer) POC Glucose (mg/dL) 174 H 76 Random Glucose Fasting Glucose Hemoglobin A1c Calcium Total Bilirubin AST ALT Alkaline Phosphatase Troponin I Total Protein Albumin Globulin Albumin/Globulin Ratio Triglycerides Cholesterol LDL Cholesterol Direct HDL Cholesterol TSH 3rd Generation RPR 03/05/18 03/05/18 03/05/18 20:17 20:00 16:23 WBC RBC Hgb Hct MCV MCH MCHC RDW Plt Count MPV D-Dimer, Quantitative Sodium Potassium Chloride Carbon Dioxide Anion Gap BUN Creatinine Est GFR ( Amer) Est GFR (Non-Af Amer) POC Glucose (mg/dL) 246 H 184 H Random Glucose Fasting Glucose Hemoglobin A1c Calcium Total Bilirubin AST ALT Alkaline Phosphatase Troponin I < 0.01 Total Protein Albumin Globulin Albumin/Globulin Ratio Triglycerides Cholesterol LDL Cholesterol Direct HDL Cholesterol TSH 3rd Generation RPR 03/05/18 03/05/18 03/05/18 11:01 07:43 07:30 WBC RBC Hgb Hct MCV MCH MCHC RDW Plt Count MPV D-Dimer, Quantitative Sodium 141 Potassium 4.3 Chloride 101 Carbon Dioxide 31 Anion Gap 13 BUN 13 Creatinine 0.9 Est GFR ( Amer) > 60 Est GFR (Non-Af Amer) > 60 POC Glucose (mg/dL) 145 H Random Glucose 119 H Fasting Glucose Hemoglobin A1c 6.8 H Calcium 9.4 Total Bilirubin AST ALT Alkaline Phosphatase Troponin I Total Protein Albumin Globulin Albumin/Globulin Ratio Triglycerides Cholesterol LDL Cholesterol Direct HDL Cholesterol TSH 3rd Generation RPR 03/05/18 03/04/18 03/04/18 07:16 21:03 15:51 WBC RBC Hgb Hct MCV MCH MCHC RDW Plt Count MPV D-Dimer, Quantitative Sodium Potassium Chloride Carbon Dioxide Anion Gap BUN Creatinine Est GFR ( Amer) Est GFR (Non-Af Amer) POC Glucose (mg/dL) 122 H 209 H 114 H Random Glucose Fasting Glucose Hemoglobin A1c Calcium Total Bilirubin AST ALT Alkaline Phosphatase Troponin I Total Protein Albumin Globulin Albumin/Globulin Ratio Triglycerides Cholesterol LDL Cholesterol Direct HDL Cholesterol TSH 3rd Generation RPR 03/04/18 03/04/18 03/04/18 07:30 07:30 07:30 WBC RBC Hgb Hct MCV MCH MCHC RDW Plt Count MPV D-Dimer, Quantitative Sodium 141 Potassium 4.2 Chloride 102 Carbon Dioxide 33 Anion Gap 11 BUN 11 Creatinine 1.0 Est GFR ( Amer) > 60 Est GFR (Non-Af Amer) > 60 POC Glucose (mg/dL) Random Glucose 133 H Fasting Glucose 133 H Hemoglobin A1c Calcium 9.4 Total Bilirubin 0.7 AST 13 L ALT 32 Alkaline Phosphatase 62 Troponin I Total Protein 6.3 Albumin 3.9 Globulin 2.4 Albumin/Globulin Ratio 1.6 Triglycerides 137 Cholesterol 137 LDL Cholesterol Direct 77 HDL Cholesterol 35 TSH 3rd Generation 1.49 RPR Nonreactive Temp Pulse Resp BP Pulse Ox 97.7 F 83 20 123/85 96 03/06/18 07:00 03/06/18 15:55 03/06/18 07:00 03/06/18 15:55 03/03/18 08:[address] of the chest bicuspid aortic valve with aortic root dilation to 4.0x4.3cm DSM 5 Symptoms Update: shortly patient is 42-year-old male, self reported history of depression and anxiety, multiple admissions to the psychiatric inpatient unit, including [facility] for one year, recently discharged from [facility] 2 weeks ago, [facility] [place], patient has intensive case management as well as nursing staff treatment team, pt denied history of suicidal attempts, one day ago patient tried to cut his forearm (no sutures, very superficial), patient came to [facility] looking for help for his depressive symptoms, anxiety "30/12" inability to function, patient was accepted by nurse practitioner overnight, patient requires further evaluation and stabilization, medication adjustment. patient was seen in his room, patient again wanted to switch his medications, patient now wants to be on Geodon, this lead technical writer educated patient that keep changing meds will be not beneficial. pt still insisting, the chances that pt will be improved on multiple meds changing is not existing. pt c/o insomnia, will increase Remeron. pt overall improving, socializing, less dramatic, denied suicidal or homicidal ideation. anxiety improved. pt attends groups, no agitation or aggression. discussed with Cardiology team today , and yesterday, plan to monitor every 6months,pt is aware of this plan, pt was able to discussed in details what was the plan from the cardiology team.. collaterals from Industrial Tractor Driver [facility], see notes for more detailed info. so far patient tolerates medications well, aims 0, no EPS. Impression: DSM 5 Diagnosis: mood disorder NOS r/o mdd r/o severe borderline personality disorder r/o venkata Medication Change: Yes (Remeron/Lamictal/Seroquel/klonopin) Medical Record Reviewed: Yes Mental Status Examination - Cognitive Function Orientation: Person, Place, Situation, Time Memory: Intact Attention: Poor (good) Concentration: Poor (good) Association: WNL Fund of Knowledge: WNL - Mood Mood: Depressed ("I am not depressed, I feel good, but anxious"), Anxious - Affect Affect: Constricted (but reactive), Other (anxious and labile this morning) - Formal Thought Process Formal Thought Process: No Impairment - Suicidal Ideation Suicidal Ideation: No - Homicidal Ideation Homicidal Ideation: No Goal/Treatment Plan - Goal/Treatment Plan Need for Continued Stay: Remain at risks for inpatient hospitalization, Severe depression anxiety, Discharge may exacerbated symptoms, Failed transitioning, Severe functional impairment Progress Toward Problem(s) and Goals/Treatment Plan: milieu/structure and supportive therapy Treatment plan was discussed in details medications for dyslipidemia as well as diabetes resumed Seroquel 75 mg at the nighttime for mood stabilization klonopin 1 mg 3 times a day for anxiety remeron 30mg po hs for depression lamictal 25 mg daily for mood stabilization started 03/11/18 EKG was repeated showed Atrial trigeminy, ASMI, age unknonw, STTW changes, C ardiology consult appreciated Echocardiogram appreciated TSH, free T4 Medical consult will be considered consultation for discharge plan and social issues Family involvement Follow up on labs Will monitor closely /Pt was educated about risk/benefits and alternatives of medications, coping strategies (safety plan, suicide prevention), relapse prevention, importance of follow up with psychiatrist and therapist, stay away from drugs/alcohol/smokingprescriptions Estimated Date of D/C: 03/17/18
[2018-03-14] MEDS: Insulin Detemir 100 units/ml Vial (Levemir) SC SCH (21:14)
[2018-03-15] MEDS: Cholecalciferol 1,000 INTLU TAB PO SCH (08:38)
[2018-03-15] MEDS: Insulin Reg-LOW-Coverage SC SCH ×4 (08:39→21:21)
--- NOTE | 2018-03-15 12:54 | PCM.PYCHPN ---
Psychiatric Progress Note - Psychiatric Progress Note Patient seen today, length of contact: 30min Patient Chief Complaint: "I feel very anxious, I feel depressed, I don't want to leave, what should I do?" Problems Identified/Issues Discussed: Suicide/ homicide prevention, past psychiatric h/o, current psychiatric symptoms, medical problems, risk/benefits and alternatives of medications, medications compliance, coping strategies, substance abuse h/o, relapse prevention, importance of follow up with psychiatrist and therapist, discharge plan. Medical Problems: pt c/o diarrhea med consult called cardiology consult appreciated pt will be seen by thoracic surgeon Diagnostic Results: 03/04/18 07:30 Lab Results 03/04/18 15:51: POC Glucose (mg/dL) 114 H 03/04/18 07:30: TSH 3rd Generation 1.49 03/04/18 07:30: Sodium 141, Potassium 4.2, Chloride 102, Carbon Dioxide 33, Anion Gap 11, BUN 11, Creatinine 1.0, Est GFR ( Amer) > 60, Est GFR (Non- Af Amer) > 60, Random Glucose 133 H, Fasting Glucose 133 H, Calcium 9.4, Total Bilirubin 0.7, AST 13 L, ALT 32, Alkaline Phosphatase 62, Total Protein 6.3, Albumin 3.9, Globulin 2.4, Albumin/Globulin Ratio 1.6, Triglycerides 137, Cholesterol 137, LDL Cholesterol Direct 77, HDL Cholesterol 35 Vital Signs Temp Pulse Pulse Resp BP Pulse Ox 03/04/18 16:00 68 121/84 03/04/18 07:02 97.3 F L 65 20 104/69 03/03/18 16:14 68 119/70 03/03/18 16:00 68 119/70 03/03/18 11:00 65 15 03/03/18 08:30 97.9 F 65 15 120/85 03/03/18 08:29 97.9 F 62 17 127/85 96 03/06/18 03/06/18 03/06/18 11:45 11:45 11:45 WBC RBC Hgb Hct MCV MCH MCHC RDW Plt Count MPV D-Dimer, Quantitative < 200 Sodium Potassium Chloride Carbon Dioxide Anion Gap BUN Creatinine Est GFR ( Amer) Est GFR (Non-Af Amer) POC Glucose (mg/dL) Random Glucose Fasting Glucose Hemoglobin A1c Calcium Total Bilirubin AST ALT Alkaline Phosphatase Troponin I < 0.01 Total Protein Albumin Globulin Albumin/Globulin Ratio Triglycerides Cholesterol LDL Cholesterol Direct HDL Cholesterol TSH 3rd Generation 1.03 RPR 03/06/18 03/06/18 03/06/18 11:45 11:29 07:40 WBC 6.6 RBC 5.34 Hgb 15.6 Hct 44.2 MCV 82.8 MCH 29.2 MCHC 35.3 RDW 13.0 Plt Count 142 MPV 9.9 D-Dimer, Quantitative Sodium Potassium Chloride Carbon Dioxide Anion Gap BUN Creatinine Est GFR ( Amer) Est GFR (Non-Af Amer) POC Glucose (mg/dL) 174 H 76 Random Glucose Fasting Glucose Hemoglobin A1c Calcium Total Bilirubin AST ALT Alkaline Phosphatase Troponin I Total Protein Albumin Globulin Albumin/Globulin Ratio Triglycerides Cholesterol LDL Cholesterol Direct HDL Cholesterol TSH 3rd Generation RPR 03/05/18 03/05/18 03/05/18 20:17 20:00 16:23 WBC RBC Hgb Hct MCV MCH MCHC RDW Plt Count MPV D-Dimer, Quantitative Sodium Potassium Chloride Carbon Dioxide Anion Gap BUN Creatinine Est GFR ( Amer) Est GFR (Non-Af Amer) POC Glucose (mg/dL) 246 H 184 H Random Glucose Fasting Glucose Hemoglobin A1c Calcium Total Bilirubin AST ALT Alkaline Phosphatase Troponin I < 0.01 Total Protein Albumin Globulin Albumin/Globulin Ratio Triglycerides Cholesterol LDL Cholesterol Direct HDL Cholesterol TSH 3rd Generation RPR 03/05/18 03/05/18 03/05/18 11:01 07:43 07:30 WBC RBC Hgb Hct MCV MCH MCHC RDW Plt Count MPV D-Dimer, Quantitative Sodium 141 Potassium 4.3 Chloride 101 Carbon Dioxide 31 Anion Gap 13 BUN 13 Creatinine 0.9 Est GFR ( Amer) > 60 Est GFR (Non-Af Amer) > 60 POC Glucose (mg/dL) 145 H Random Glucose 119 H Fasting Glucose Hemoglobin A1c 6.8 H Calcium 9.4 Total Bilirubin AST ALT Alkaline Phosphatase Troponin I Total Protein Albumin Globulin Albumin/Globulin Ratio Triglycerides Cholesterol LDL Cholesterol Direct HDL Cholesterol TSH 3rd Generation RPR 03/05/18 03/04/18 03/04/18 07:16 21:03 15:51 WBC RBC Hgb Hct MCV MCH MCHC RDW Plt Count MPV D-Dimer, Quantitative Sodium Potassium Chloride Carbon Dioxide Anion Gap BUN Creatinine Est GFR ( Amer) Est GFR (Non-Af Amer) POC Glucose (mg/dL) 122 H 209 H 114 H Random Glucose Fasting Glucose Hemoglobin A1c Calcium Total Bilirubin AST ALT Alkaline Phosphatase Troponin I Total Protein Albumin Globulin Albumin/Globulin Ratio Triglycerides Cholesterol LDL Cholesterol Direct HDL Cholesterol TSH 3rd Generation RPR 03/04/18 03/04/18 03/04/18 07:30 07:30 07:30 WBC RBC Hgb Hct MCV MCH MCHC RDW Plt Count MPV D-Dimer, Quantitative Sodium 141 Potassium 4.2 Chloride 102 Carbon Dioxide 33 Anion Gap 11 BUN 11 Creatinine 1.0 Est GFR ( Amer) > 60 Est GFR (Non-Af Amer) > 60 POC Glucose (mg/dL) Random Glucose 133 H Fasting Glucose 133 H Hemoglobin A1c Calcium 9.4 Total Bilirubin 0.7 AST 13 L ALT 32 Alkaline Phosphatase 62 Troponin I Total Protein 6.3 Albumin 3.9 Globulin 2.4 Albumin/Globulin Ratio 1.6 Triglycerides 137 Cholesterol 137 LDL Cholesterol Direct 77 HDL Cholesterol 35 TSH 3rd Generation 1.49 RPR Nonreactive Temp Pulse Resp BP Pulse Ox 97.7 F 83 20 123/85 96 03/06/18 07:00 03/06/18 15:55 03/06/18 07:00 03/06/18 15:55 03/03/18 08:[address] of the chest bicuspid aortic valve with aortic root dilation to 4.0x4.3cm DSM 5 Symptoms Update: shortly patient is 42-year-old male, self reported history of depression and anxiety, multiple admissions to the psychiatric inpatient unit, including [facility] for one year, recently discharged from [facility] 2 weeks ago, patient [facility] under [facility] [place], patient has intensive case management as well as nursing staff treatment team, pt denied history of suicidal attempts, one day ago patient tried to cut his forearm (no sutures, very superficial), patient came to [facility] looking for help for his depressive symptoms, anxiety "30/12" inability to function, patient was accepted by nurse practitioner overnight, patient requires further evaluation and stabilization, medication adjustment. patient was seen in his room, yesterday patient again wanted to switch his medications, patient now wants to be on Geodon, today pt again complaining of being "anxious, depressed, I don't want to leave the hospital, I don't feel ready", from the nursing report patient has good appetite, good hygiene, patient feels very comfortable in the unit, no psychosis no aggression. 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 patient is aware of discharge on Friday. discussed with Cardiology team today , and yesterday, plan to monitor every 6months,pt is aware of this plan, pt was able to discussed in details what was the plan from the cardiology team.. collaterals from Drafting Supervisor at [facility], see notes for more detailed info. so far patient tolerates medications well, aims 0, no EPS. Impression: DSM 5 Diagnosis: mood disorder NOS r/o mdd r/o severe borderline personality disorder r/o venkata Medication Change: Yes (Remeron/Lamictal/Seroquel/klonopin) Medical Record Reviewed: Yes Mental Status Examination - Cognitive Function Orientation: Person, Place, Situation, Time Memory: Intact Attention: Poor (good) Concentration: Poor (good) Association: WNL Fund of Knowledge: WNL - Mood Mood: Depressed ("I am not depressed, I feel good, but anxious"), Anxious - Affect Affect: Constricted (but reactive), Other (anxious and labile this morning) - Formal Thought Process Formal Thought Process: No Impairment - Suicidal Ideation Suicidal Ideation: No - Homicidal Ideation Homicidal Ideation: No Goal/Treatment Plan - Goal/Treatment Plan Need for Continued Stay: Remain at risks for inpatient hospitalization, Severe depression anxiety, Discharge may exacerbated symptoms, Failed transitioning, Severe functional impairment Progress Toward Problem(s) and Goals/Treatment Plan: milieu/structure and supportive therapy Treatment plan was discussed in details medications for dyslipidemia as well as diabetes resumed Seroquel 75 mg at the nighttime for mood stabilization klonopin 1 mg 3 times a day for anxiety remeron 30mg po hs for depression lamictal 25 mg daily for mood stabilization started 03/11/18 EKG was repeated showed Atrial trigeminy, ASMI, age unknonw, STTW changes, Cardiology consult appreciated Echocardiogram appreciated TSH, free T4 Medical consult will be considered consultation for discharge plan and social issues Family involvement Follow up on labs Will monitor closely /Pt was educated about risk/benefits and alternatives of medications, coping strategies (safety plan, suicide prevention), relapse prevention, importance of follow up with psychiatrist and therapist, stay away from drugs/alcohol/smokingprescriptions Estimated Date of D/C: 03/17/18
[2018-03-15] MEDS: Insulin Detemir 100 units/ml Vial (Levemir) SC SCH (21:07)
[2018-03-16 07:27] VITALS: TEMP 97.6
[2018-03-16] MEDS: Cholecalciferol 1,000 INTLU TAB PO SCH (09:11)
[2018-03-16] MEDS: Insulin Reg-LOW-Coverage SC SCH ×4 (09:17→21:04)
--- NOTE | 2018-03-16 20:08 | PN ---
DATE: 03/16/2018 SUBJECTIVE: The patient denies any chest pain, shortness of breath, palpitation or back pain. PHYSICAL EXAMINATION VITAL SIGNS: Blood pressure 95/60, heart rate 75, temperature 97.6, respirations 16. HEENT: Normocephalic. CHEST: Clear. HEART: S1 and S2 regular. EXTREMITIES: No edema. LABORATORY DATA: Today's blood sugars are 155 and 196 respectively. ASSESSMENT: 1. Bicuspid aortic valve. 2. Aortopathy. 3. Depression. 4. Uncontrolled diabetes mellitus. RECOMMENDATIONS: Continue current Inderal 20 mg twice a day, Lipitor 20 mg once a day. I made sure that the patient will get assistance with Cytotechnologist in confirming his chest CT angio in 6 months at [facility] with follow up with Dr. Bae, the cardiothoracic surgeon. Juanjo Razo MD
[2018-03-16] MEDS: Insulin Detemir 100 units/ml Vial (Levemir) SC SCH (22:06)
--- NOTE | 2018-03-17 00:38 | PN ---
DATE: 03/16/[address] Arboleda. Case reviewed and case discussed with staff. The patient is a 42-year-old white male with a reported history of depression and anxiety and that have led to multiple psychiatric admissions including a 1-year stay at [facility]. He had been discharged from [facility] 2 weeks previously and had been under the [facility] [place]. He reportedly has had intensive case management as well as nursing staff treatment. He tried to cut his forearm 2 days prior to admission but this appeared to be superficial (with the patient denying suicidality). He had then taken to [facility], and was deemed to require further observation and treatment and sent here. He has continued to complain of some anxiety and depression and feeling not ready to leave the hospital. Nursing, however, observes that his appetite is good as is his hygiene. It is felt that he has developed a certain comfort level on the unit. The patient is scheduled to be discharged tomorrow. He is being maintained psychotropically on Geodon p.r.n., Glucophage 1000 mg, Humulin insulin, Inderal 20 mg b.i.d., Januvia 100 mg daily, Klonopin 1 mg at bedtime, Lamictal 25 mg daily. The patient is not considered to be homicidal, suicidal or psychotic at this juncture. Butch Levi MD/ PhD
[2018-03-17 07:22] VITALS: BP 96/66; PULSE 60; RESP 18
[2018-03-17] MEDS: Cholecalciferol 1,000 INTLU TAB PO SCH (09:11)
[2018-03-17] MEDS: Insulin Reg-LOW-Coverage SC SCH (09:11)
--- NOTE | 2018-03-17 17:00 | PCM.PYCHDC ---
Mental Status Examination - Mental Status Examination Orientation: Person, Place, Situation, Time Memory: Intact Mood: Neutral Affect: Constricted (but reactive and mood congruent) Speech: Appropriate Attention: WNL Concentration: WNL Association: WNL Fund of Knowledge: WNL Formal Thought Process: No Impairment Description of patient's judgement and insight: insight into mental illness feel very poor,, but overall improved pt was compliant with medications and unit rules and regulations, pt was going to groups, was calm, cooperative, socially appropriate, no behavioral incidents, no agitation, no aggression. Psychotic Thoughts and Behaviors: Pt denied v/a/t hallucinations, denied paranoid ideations, pt does not appear to be psychotic, and thought process is goal directed. Suicidal Ideation: No Current Homicidal Ideation?: No Plan: pt adamantly denied thoughts of harming self or others denied intent or plan. Discharge Summary - Discharge Note Reason for Hospitalization: patient was transferred from [facility] [place] for evaluation and stabilization of depressive symptoms, uncontrolled anxiety, medication management observation and stabilization. Patient was willing to get treatment. Psychiatric History (includes Medical, Family, Personal Hx): as per HPI Laboratory Data: Abnormal Lab Results 03/16/18 03/17/18 21:01 07:22 POC Glucose (mg/dL) 295 H 150 H Consultations:: List each consultation separately and include: 1. Reason for request. 2. Findings. 3. Follow-up Consultations: med consult called, appreciated Cardiology consultation appreciated as per recommendations: pt needs to be followed up with participant administrator as outpatient pt needs to be followed up with thoracic surgeon as per participant administrator Summary of Hospital Course include:: 1. Description of specific treatment plan utilized for patients during their course of treatmen. 2. Summarize the time- course for resolution of acute symptoms and/or regressed behaviors. 3. Describe issues identified and worked on during hospitalization. 4. Describe medication utilized. 5. Describe medical problems identified and treated. 6. Reassessment of suicide risk Summary of Hospital Course: shortly patient is 42-year-old male, self reported history of depression and anxiety, multiple admissions to the psychiatric inpatient unit, including [facility] for one year, recently discharged from [facility] 2 weeks ago, patient currently under [facility] [place], patient has intensive case management as well as nursing staff treatment team, pt denied history of suicidal attempts, one day a go patient tried to cut his forearm (no sutures, very superficial), patient came to [facility] looking for help for his depressive symptoms, anxiety "30/12" inability to function, patient was accepted by nurse practitioner overnight, patient required further evaluation and stabilization, medication adjustment. please see admission note for more detailed information. over the course of this hospitalization, pt would give multiple symptoms such: "uncontrolled anxiety", but patient never presented to be anxious. Patient was saying that he is very depressed but patient affect is bright, patient participate in unit activities, has good appetite and sleep. Patient also had tendency of requesting to change medication almost on daily basis, did not give this typewriter aligner a chance to increase the doses. Zoloft was tried, Paxil was tried, Xanax was tried, Seroquel was tried, none of those medications were helpful. atient was looking for long-term placement, seems to be very comfortable in the hospital,did not want to leave. At the same time patient reached maximum affect from this hospitalization, denied any thoughts of killing himself or others, not psychotic. Patient was seen by participant administrator, CT of the chest bicuspid aortic valve with aortic root dilation to 4.0x4.3cm pt was seen by [employer] , plan to monitor every 6months,pt is aware of this plan, pt was able to discussed in details what was the plan from the cardiology team.. collaterals from [facility], see SW notes for more detailed info. Vital Signs Temp Pulse Resp BP Pulse Ox 03/03/18 08:29 97.9 F 62 17 127/85 96 Pt was stabilized on the following medications: Geodon 20 mg a.m. and at bedtime for more stabilization klonopin 1 mg 3 times a day for anxiety remeron 30mg po hs for depression lamictal 25 mg daily for mood stabilization started 03/11/18 patient tolerated medications well, no side effects observed or reported, aims 0, no EPS. overall patient improved, reached maximum effect from this hospitalization, deemed ready for discharge. Over the course of this hospitalization pt was attending groups, pt also had medication management, had therapeutic milieu. At the time of the discharge pt denied been depressed, denied thoughts of harming self or others, denied psychotic symptoms, and pt does not appeared to be psychotic, reported feeling anxious, but does not appear to be anxious, pt is not in imminent danger to self or others, pt will be seen at [facility] on March 20 , information about follow up appointment, time and address provided to the pt, it is patient responsibility to follow up with outpatient clinic, PMD as well as participant administrator, pt was also advised to obtain medical record from this hospital. In case pt will need to obtain results of studies pending at discharge pt was provided with contact information of Psychiatric Inpatient unit [phone] as well as Medical Record Department [phone]. smoking cessation treatment program information was provided by the pt was provided with prescriptions for all of medications (please see medication reconciliation form) Pt was educated about safety plan in case of worsening of symptoms or in case of suicidal or homicidal ideation call 911 or go to the nearest ER, also was educated to take meds as prescribed and stay away from drugs, pt verbalized understanding. - Diagnosis (1) Mood disorder due to known physiological condition, unspecified Status: Chronic Priority: Medium - Final Diagnosis (DSM 5) Condition upon Discharge: GOOD DSM 5: r/o dependent personality disorder Disposition: HOME/ ROUTINE Follow-up Treatment Plan: At the time of the discharge pt denied been depressed, denied thoughts of harming self or others, denied psychotic symptoms, and pt does not appeared to be psychotic, reported feeling anxious, but does not appear to be anxious, pt is not in imminent danger to self or others, pt will be seen at [facility] on March 20 , information about follow up appointment, time and address provided to the pt, it is patient responsibility to follow up with outpatient clinic, PMD as well as participant administrator, pt was also advised to obtain medical record from this hospital. In case pt will need to obtain results of studies pending at discharge pt was provided with contact information of Psychiatric Inpatient unit [phone] as well as Medical Record Department [phone]. smoking cessation treatment program information was provided by the pt was provided with prescriptions for all of medications (please see medication reconciliation form) Pt was educated about safety plan in case of worsening of symptoms or in case of suicidal or homicidal ideation call 911 or go to the nearest ER, also was educated to take meds as prescribed and stay away from drugs, pt verbalized understanding. Prescriptions/Medication Reconciliation: Atorvastatin [Lipitor] 20 mg PO DIN #7 tab Cholecalciferol [Vitamin D 1000 IU] 1,000 intlu PO DAILY #7 tab clonazePAM [Klonopin] 1 mg PO TID #45 tab Glimepiride [amaRYL] 4 mg PO DAILY #7 tab lamoTRIgine [Lamictal] 25 mg PO DAILY #14 tab MetFORMIN [glucoPHAGE] 1,000 mg PO AC #7 tab Mirtazapine [Remeron] 30 mg PO DAILY #14 tab Nicotine 14 mg/24 hr [Nicoderm CQ] 1 patch TD DAILY #14 patch Propranolol [Inderal] 20 mg PO BID #14 tab SITagliptin [Januvia] 100 mg PO DAILY #7 tab Ziprasidone [Geodon Cap] 20 mg PO AMHS #30 cap - Smoking Cessation Smoking Cessation Medication prescribed: Yes - Antipsychotic Medications Pt discharged on 2 or more routine antipsychotic medications: No
== END 2018-03-17 12:45 | disposition home or self-care (01) | DRG 429 ==
LOC: ED 08:17 → ERH 08:57 → PSYC 09:27
PROVIDERS: ADMIT Psychiatry & Neurology Psychiatry; ATTEND Psychiatry & Neurology Psychiatry
DX: F06.30 Mood disorder due to known physiological condition, unspecified (principal); E11.65 Type 2 diabetes mellitus with hyperglycemia; Q23.1 Congenital insufficiency of aortic valve; E78.00 Pure hypercholesterolemia, unspecified; E78.5 Hyperlipidemia, unspecified; F31.9 Bipolar disorder, unspecified; F41.9 Anxiety disorder, unspecified; F60.3 Borderline personality disorder; F60.7 Dependent personality disorder; F60.89 Other specific personality disorders; F90.9 Attention-deficit hyperactivity disorder, unspecified type; G47.00 Insomnia, unspecified; I77.810 Thoracic aortic ectasia; R45.851 Suicidal ideations; S41.119A Laceration without foreign body of unspecified upper arm, initial encounter; T43.205A Adverse effect of unspecified antidepressants, initial encounter; Z79.4 Long term (current) use of insulin; Z79.899 Other long term (current) drug therapy; Z82.49 Family history of ischemic heart disease and other diseases of the circulatory system; F17.210 Nicotine dependence, cigarettes, uncomplicated; R19.7 Diarrhea, unspecified; R94.31 Abnormal electrocardiogram [ECG] [EKG]; I95.9 Hypotension, unspecified; R00.8 Other abnormalities of heart beat